=== PATIENT | female | born 1945 | race Caucasian/White ===

== ENCOUNTER → 2023-07-22 14:03 | Outpatient (REF) | payer MEDICARE, OTHER, SELFPAY | LOC: DHCBC HW 14:03 | PROVIDERS: ATTENDING PHYSICIAN Internal Medicine Cardiovascular Disease; FAMILY PHYSICIAN Internal Medicine | DX: R60.0 Localized edema (principal) | CPT/HCPCS: 93306 ==

== ENCOUNTER → 2023-08-03 15:20 | Outpatient (REF) | payer MEDICARE, OTHER, SELFPAY ==
[2023-08-03 16:54] LABS: ALT (SGPT) 56 U/L (0-35); AST (SGOT) 55 U/L (14-36); Albumin 3.7 g/dl (3.5-5.0); Alkaline Phosphatase 74 U/L (38-126); Blood Urea Nitrogen 21 mg/dl (7-17); Calcium 9.2 mg/dl (8.4-10.2); Carbon Dioxide 32 mmol/L (22-30); Chloride 95 mmol/L (98-107); Glucose 150 mg/dl (70-99); Sodium 133 mmol/L (135-145); Total Bilirubin 0.6 mg/dl (0.2-1.3); Total Protein 6.6 g/dl (6.3-8.2); eGFR 32.81
[2023-08-03 17:09] LABS: Free T3 3.24 pg/ml (2.77-5.27); Free T4 1.69 ng/dl (0.78-2.19)
[2023-08-03 17:22] LABS: TSH 8.68 uIU/ml (0.47-4.68)
== END ==
LOC: REG 15:20
PROVIDERS: ATTENDING PHYSICIAN Internal Medicine Endocrinology, Diabetes & Metabolism; FAMILY PHYSICIAN Internal Medicine; REFERRING PHYSICIAN Internal Medicine Cardiovascular Disease
DX: E05.90 Thyrotoxicosis, unspecified without thyrotoxic crisis or storm (principal); R60.0 Localized edema
CPT/HCPCS: 36415; 80053; 84439; 84443; 84481

== ENCOUNTER 2023-08-20 13:58 | Emergency (ER) | payer MEDICARE, OTHER, SELFPAY ==
[2023-08-20 14:06] VITALS: BP 129/54
--- NOTE | 2023-08-20 16:01 | ED.GENMED ---
History of Present Illness
General
Chief Complaint: Back Pain
Source: patient and family
Time Seen by Provider: 08/20/23 15:23
Travel History
Have you had any contact with someone who has COVID-19?: No
Do you have any symptoms of coronavirus? Fever > 100 degrees, chills, cough, shortness of breath, sore throat, loss of taste or smell, muscle aches, or headache?: No
History of Present Illness
History of Present Illness:
78-year-old female with past medical history of hypertension, hyperlipidemia, chronic kidney disease, CVA, chronic back pain presenting to the emergency department for evaluation of exacerbation of her back pain. Patient states she has been trying
Advil, creams and lidocaine patches without any relief. Patient notes pain is constant but significantly worse with any attempted movement. She denies any injuries to the affected area, falls or any other injuries. She denies any fevers, chills,
rigors, bowel changes or urinary symptoms, saddle anesthesias, focal weakness or numbness. Patient does take daily prednisone which she states is due to a thyroid disorder and has been on this for an extended period of time. She does not follow
with any pain management provider nor orthopedist and states she usually gets medication for pain from her primary care physician.
Past History
Past History
ED Past Medical History: Arrthythmia, HTN, Hypercholesterolemia, Renal failure, Psychiatric (Anxiety) and Other (Glaucoma)
ED Past Surgical History: Appendectomy and Cardiac (Open heart surgery)
Social History
Tobacco: Smoker
Alcohol: Occasional
Drug: None
Personal:
Living: with family
Review of Systems
Review of Systems
All Other Systems: ROS reviewed and negative except as documented in HPI and ROS
Phy Exam
Physical Exam
Physical Exam:
GENERAL: Alert , appears uncomfortable
EYE: clear conjunctiva b/l
NECK: Supple
ENT: o/p clr, mmm.
CARDIAC: Regular rate and rhythm .
LUNGS: Clear breath sounds bilaterally, no acute respiratory distress, no wheezes/rales/rhonchi
ABDOMEN: Soft, without focal tenderness, no r/g, no cvat
BACK: Limited secondary to pain range of motion, diffusely tender thoracolumbar region without any focal midline tenderness, no rashes
NEUROLOGICAL: Alert and oriented, no focal neuro deficits. sensation grossly intact and equal to light touch bilateral lower extremities
SKIN: Warm and dry, skin intact.
MUSCULOSKELETAL: No edema, well perfused. EHL intact bilaterally
PSYCH: Normal and appropriate interaction.
Scores
Heart Failure Risk
Heart Failure Risk Score: Not Applicable
Heart Score for Chest Pain Patients
STEMI patient?: Not applicable
Withdrawal Assessment of Alcohol
Withdrawal Assessment Completed?: Not applicable
Course
Orders/Labs/Results
Orders:
Orders
08/20/23 14:10
CR Lumbar Spine Comp Min 4 Vw* Urgent
Comment:
Reason For Exam: pain
08/20/23 16:00
Dexamethasone Sod Phosphate [Decadron] 10 mg IM NOW STA
Diazepam [Valium] 5 mg PO NOW STA
Vital Signs
Initial and Last Documented VS:
Initial Vital Signs
Temp Pulse Resp BP Pulse Ox
97.9 F 75 18 129/54 96
08/20/23 14:06 08/20/23 14:06 08/20/23 14:06 08/20/23 14:06 08/20/23 14:06
Last Documented Vital Signs
Temp Pulse Resp BP Pulse Ox
97.9 F 75 16 129/54 96
08/20/23 14:06 08/20/23 16:17 08/20/23 16:17 08/20/23 16:17 08/20/23 16:17
MDM/Problems Addressed
Differential Diagnosis Includes:
Compression fracture given chronic corticosteroid use, spinal stenosis, nerve impingement, disc herniation, muscle spasm
MDM/Problems Addressed:
78-year-old female presenting to the emergency department for evaluation for acute on chronic exacerbation of lower back pain. Patient had x-ray ordered from triage which I read as no acute fracture with degenerative changes however radiology did
contact us and notify us that patient has a suspected compression fracture at T12 and possible superior endplate fracture of the L1 vertebrae. Patient had already been discharged prior to this being done. I had treated her with a dose of Valium as
well as Decadron here troll. NSAIDs avoided given patient's history and use of Eliquis. After radiology noted these possible fractures I did contact the patient via her reported home phone number and left a voicemail for her to contact me back to
go over these results. I did provide the patient with information for pain management as well as orthopedics prior to her discharge.
*Radiology
Radiology exam reviewed: preliminary read by ED provider and radiology read reviewed
*Pulse Oximetry
Patient hypoxic: no
*Critical Care Note
Total Time (30-74mins, 75-104mins- exclusive of procedures): Not Applicable
ED Attending Note
-
Portions of this chart may have been created with voice recognition software.� Occasional wrong word or��sound alike� substitutions may have occurred due to the inherent limitations of voice recognition software.
Discharge Plan
Departure
Patient Disposition: Home (Routine Discharge)
Date of Disposition: 08/20/23
Time of Disposition: 16:01
Patient with high blood pressure during this ER visit?: No
Discharge Problem:
Chronic back pain
Instructions: Low Back Pain (DC)
Prescriptions:
New
diazepam [Valium] 5 mg tablet
5 mg PO HS PRN (Reason: muscle spasm) Qty: 8 0RF
No Action
latanoprost 0.005 % Drops
1 drp BOTH EYES HS
potassium chloride 10 mEq Tablet Extended Release
10 meq PO DAILY
losartan 25 mg Tablet
25 mg PO DAILY
Hold Instructions: Resume on 05/03/23. until seen by pcp and BMP performed and resulted, showing resolved ELENA
methimazole 5 mg Tablet
20 mg PO DAILY 30 Days Qty: 120 0RF
prednisone 20 mg Tablet
20 mg PO DAILY 30 Days Qty: 30 0RF
aspirin 81 MG tablet,delayed release (DR/EC)
81 mg PO DAILY Qty: 30 0RF
fluoxetine 20 MG capsule
20 mg PO DAILY Qty: 30 0RF
rosuvastatin 20 MG tablet
20 mg PO DAILY Qty: 30 0RF
multivitamin with folic acid [Tab-A-Muna] 1 TABLET tablet
1 tab PO DAILY Qty: 30 0RF
Eliquis 5 MG tablet
5 mg PO BID Qty: 60 0RF
Referrals:
Russ Mojica MD [Active] - (Pain Management)
Gurwinder Nloasco DO [Active] - (Orthopedist)
Interventions
Interventions:
*Risk Screen - Suicide Last Done: 08/20/23 14:06
*General Assessment Last Done: 08/20/23 14:06
*Neglect/Abuse Screening Last Done: 08/20/23 16:17
*Nursing Disposition Last Done: 08/20/23 16:17
ED-Musculoskeletal Assessment Last Done: 08/20/23 15:34
[2023-08-20] MEDS: DECADRON 10 MG IM (16:11)
[2023-08-20] MEDS: VALIUM 5 MG PO (16:13)
[2023-08-20 16:17] VITALS: BP 129/54
== END 2023-08-20 16:17 | disposition home or self-care (01) ==
LOC: EMR 13:58
PROVIDERS: EMERGENCY PHYSICIAN Emergency Medicine; FAMILY PHYSICIAN Internal Medicine
DX: G89.29 Other chronic pain (principal); M54.50 Low back pain, unspecified; F17.200 Nicotine dependence, unspecified, uncomplicated; E07.9 Disorder of thyroid, unspecified; I12.9 Hypertensive chronic kidney disease with stage 1 through stage 4 chronic kidney disease, or unspecified chronic kidney disease; N18.9 Chronic kidney disease, unspecified
CPT/HCPCS: 99284; 96372; 72110

== ENCOUNTER 2023-09-23 17:55 | Inpatient (IN) | payer MEDICARE, OTHER, SELFPAY ==
[2023-09-23 13:19] VITALS: BP 140/57
[2023-09-23 13:38] LABS: % Basophils 0.3 % (0-2); % Immature Granulocytes 1.8 % (0-0.5); % Lymphocytes 4.2 % (20.5-51.1); % Monocytes 7.3 % (1.7-9.3); % Neutrophils 85.4 % (42.2-75.2); Absolute Basophils 0.1 10^3/uL (0-0.2); Absolute Eosinophils 0.2 10^3/uL (0-0.7); Absolute Immature Granulocytes 0.4 10^3/uL (0-0.05); Absolute Lymphocytes 0.9 10^3/uL (1.2-3.4); Absolute Monocytes 1.5 10^3/uL (0.1-0.6); Absolute Neutrophils 17.6 10^3/uL (1.4-6.5); Hematocrit 38.6 % (37.0-47.0); Hemoglobin 12.1 g/dL (12.0-16.0); Mean Corp Hgb Conc. 31.3 g/dL (33.0-37.0); Mean Corpuscular Hgb 27.8 pg (27.0-31.0); Mean Corpuscular Volume 88.5 fL (81.0-99.0); Mean Platelet Volume 9.1 fL (7.4-10.4); Nucleated Red Blood Cells % 0 %; Platelet Count 268 10^3/uL (130-400); Red Blood Cell Count 4.36 10^6/uL (4.20-5.40); Red Cell Dist. Width 15.5 % (11.5-14.5); White Blood Cell Count 20.6 10^3/uL (4.8-10.8)
[2023-09-23 13:50] LABS: ALT (SGPT) 25 U/L (0-35); AST (SGOT) 43 U/L (14-36); Albumin 3.3 g/dl (3.5-5.0); Alkaline Phosphatase 119 U/L (38-126); Blood Urea Nitrogen 36 mg/dl (7-17); Carbon Dioxide 31 mmol/L (22-30); Chloride 97 mmol/L (98-107); Estimated Creatinine Clearance 27 ml/min; Glucose 130 mg/dl (70-99); Potassium 3.7 mmol/L (3.5-5.1); Sodium 132 mmol/L (135-145); Total Bilirubin 0.6 mg/dl (0.2-1.3); Total Protein 5.7 g/dl (6.3-8.2); eGFR 35.45
[2023-09-23 14:48] LABS: Urine Albumin 1+ (Neg - Trace); Urine Bilirubin 2+ (Negative); Urine Character Slightly Cloudy (Clear); Urine Color Yellow; Urine Glucose Negative (Negative); Urine Ketone Trace (Negative); Urine Leukocyte Trace (Negative); Urine Nitrite Positive (Negative); Urine Occult Blood 1+ (Negative); Urine Specific Gravity 1.015 (<1.030); Urine Urobilinogen 1+ (Neg - 1+)
--- NOTE | 2023-09-23 14:48 | ED.GENMED ---
History of Present Illness
General
Chief Complaint: Weakness
Source: patient
Exam Limitations: none
Time Seen by Provider: 09/23/23 13:47
Nursing documentation reviewed up to this point in time: agreed with
Travel History
Have you had any contact with someone who has COVID-19?: No
Do you have any symptoms of coronavirus? Fever > 100 degrees, chills, cough, shortness of breath, sore throat, loss of taste or smell, muscle aches, or headache?: No
History of Present Illness
History of Present Illness:
Patient is a 78-year-old female with past medical history of bradycardia, hypertension anxiety former smoker CABG x 2(2020) who presents from home complaining of weakness for the past several days. Patient denies any fever chills cough urinary
symptoms. Patient denies any chest pain shortness of breath.
Past History
Past History
ED Past Medical History: Arrthythmia, HTN, Hypercholesterolemia, Renal failure, Psychiatric (Anxiety) and Other (Glaucoma)
ED Past Surgical History: Appendectomy and Cardiac (Open heart surgery)
Social History
Tobacco: Smoker
Alcohol: Occasional
Drug: None
Personal:
Living: with family
Review of Systems
Review of Systems
Allergies reviewed?: Yes
All Other Systems: ROS reviewed and negative except as documented in HPI and ROS
Constitutional: Reports fatigue; Denies fever
EENT: Reports no symptoms
Respiratory: Reports no symptoms
Cardiac: Reports no symptoms
ABD/GI: Reports no symptoms
: Reports no symptoms
Musculoskeletal: Reports no symptoms
Skin: Reports no symptoms
Neurological: Reports no symptoms
Psychiatric: Reports no symptoms
Phy Exam
General Physical Exam
General Presentation: no apparent distress
General age: appears stated age
General Skin: warm and dry
General Habitus: normal
General Mental: alert
General Hydration: dry mucous membranes
Cardiovascular Exam
Cardiovascular Exam: regular rate/rhythm, no murmur and normal peripheral pulses
Pulmonary Exam
Pulmonary Exam: lungs clear and no respiratory distress
Neurological Exam
Neurological Exam: alert and oriented x3
Musculoskeletal Exam
Musculoskeletal Exam: full ROM
Skin Exam
Skin Exam: normal color and warm/dry
Psychiatric Exam
Psychiatric Exam: normal mood/affect
Course
Orders/Labs/Results
Orders:
Orders
09/23/23 13:28
Complete Blood Count/With Diff Urgent
Comprehensive Metabolic Panel Urgent
09/23/23 14:12
Straight cath- Treatment ONCE
09/23/23 14:41
UA Reflex to Culture [Urinalysis Reflex To Culture] Urgent
Date Specimen was Collected: 09/23/23
Time Specimen was Collected: 14:28
Urine Microscopic Reflex Cult Urgent
Urine Culture Urgent
THIERRY Source: U
Specimen Description:
Obtained by: Random
Date Specimen was Collected: 09/23/23
Time Specimen was Collected: 14:28
09/23/23 14:46
Chest [CR Chest - 2 Views ] Urgent
Comment:
Reason For Exam: weakness
09/23/23 14:49
Electrocardiogram (*1) Stat
Reason for Study: Other
Other Reason for Exam: chest pain
Cardiac Monitoring- Treatment ONCE
EKG- Treatment ONCE
09/23/23 15:05
COVID-19 Antigen Urgent
Source: Nasal Swab
Lactic Acid Q4H
Comment: CANCEL 2nd LACTIC ACID IF 1st LACTIC ACID IS LESS THAN 2
Blood Culture Q30M
THIERRY Source: Blood/Venous
Specimen Description:
Blood Culture Q30M
THIERRY Source: Blood/Venous
Specimen Description:
Influenza A+B Rapid Molecular Urgent
THIERRY Source: Nasal Swab
Specimen Description:
04/18/24 18:45
Lactic Acid Q4H
Comment: CANCEL 2nd LACTIC ACID IF 1st LACTIC ACID IS LESS THAN 2
Abnormal Lab Results
09/23/23 09/23/23
13:28 14:41
WBC 20.6 H 10^3/uL
(4.8-10.8)
MCHC 31.3 L g/dL
(33.0-37.0)
RDW 15.5 H %
(11.5-14.5)
Abs Immat Gran (auto) 0.4 H 10^3/uL
(0-0.05)
Absolute Neuts (auto) 17.6 H 10^3/uL
(1.4-6.5)
Absolute Lymphs (auto) 0.9 L 10^3/uL
(1.2-3.4)
Absolute Monos (auto) 1.5 H 10^3/uL
(0.1-0.6)
Immature Gran % 1.8 H %
(0-0.5)
Neutrophils % 85.4 H %
(42.2-75.2)
Lymphocytes % 4.2 L %
(20.5-51.1)
Sodium 132 L mmol/L
(135-145)
Chloride 97 L mmol/L
(98-107)
Carbon Dioxide 31 H mmol/L
(22-30)
BUN 36 H mg/dl
(7-17)
Creatinine 1.5 H mg/dL
(0.6-1.0)
Glucose 130 H mg/dl
(70-99)
AST 43 H U/L
(14-36)
Total Protein 5.7 L g/dl
(6.3-8.2)
Albumin 3.3 L g/dl
(3.5-5.0)
Urine Ketones Trace A
(Negative)
Ur Occult Blood Reflex 1+ A
(Negative)
Urine Nitrite (Reflex) Positive A
(Negative)
Urine Bilirubin 2+ A
(Negative)
Leukocyte Esterase Rfl Trace A
(Negative)
Urine RBC 3-6 A /HPF
(0-2)
Urine WBC (Reflex) 11-15 A /HPF
(0-5)
Urine Albumin (Reflex) 1+ A
(Neg - Trace)
09/23/23 13:28
09/23/23 13:28
Vital Signs
Initial and Last Documented VS:
Initial Vital Signs
Temp Pulse Resp BP Pulse Ox
97.4 F 85 20 140/57 93
09/23/23 13:19 09/23/23 13:19 09/23/23 13:19 09/23/23 13:19 09/23/23 13:19
Last Documented Vital Signs
Temp Pulse Resp BP Pulse Ox
97.4 F 83 22 140/57 93
09/23/23 13:19 09/23/23 16:00 09/23/23 16:00 09/23/23 13:19 09/23/23 13:19
MDM/Problems Addressed
Differential Diagnosis Includes:
Not limited to viral syndrome, COVID, influenza, anemia, UTI, electrolyte abnormality
MDM/Problems Addressed:
Patient is a 70-year-old female who complains of weakness for the past several days. Patient is documented has history of hypertension hyperlipidemia CABG chronic kidney disease recently treated for a pathetic hyperthyroidism in April 2023
presents to the ER with weakness. She denies any actual fevers. She is afebrile has an elevated white count 20.6(on Prednisone 10 mg daily for thyroid ) her creatinine is elevated at 1.5 which is baseline . She denies any UTI symptoms she has
11�15 white blood cells with nitrates. X-ray shows new extensive bilateral pulmonary metastatic disease with multiple solid pulmonary nodules in the lungs which appear new from April 2023. There is also a new superior endplate fracture of T12
with anterior vertebral body collapse likely a metastatic pathologic fracture.
Patient did not initially offer this but on reassessment and after speaking about findings on chest x-ray patient reports that her right arm seems to have been weak for the past 2 weeks. This is not new from today. On exam however there is no
actual focal deficit will still order CAT scan. Will treat for UTI and admit for new chest x-ray findings of metastatic disease
Chronic conditions affecting care:
CABG chronic kidney disease hypertension, hyperlipidemia
*Radiology
Radiology exam reviewed: radiology read reviewed (Chest x-ray shows new extensive bilateral pulmonary metastatic disease; new superior endplate fracture of T12 with anterior vertebral body collapse possibly metastatic)
*Pulse Oximetry
Patient hypoxic: no
*EKG
Interpreted by ED Provider?: Yes
Interpretation: normal
Heart Rate: 87
Rhythm: sinus
Ischemia: non-specific ST changes
*Critical Care Note
Total Time (30-74mins, 75-104mins- exclusive of procedures): Not Applicable
ED Attending Note
-
Portions of this chart may have been created with voice recognition software.� Occasional wrong word or��sound alike� substitutions may have occurred due to the inherent limitations of voice recognition software.
Discharge Plan
Departure
Patient Disposition: Admit
Date of Disposition: 09/23/23
Time of Disposition: 17:11
Admit to: Med/Surg
Admit to doctor: hospitalist
Presentation/result/management discussed w/ accepting MD/DO: Hospitalist
Patient with high blood pressure during this ER visit?: Yes
Condition: Fair
Covid-19: Not Applicable
Discharge Problem:
Weakness, Cancer, metastatic to lung, Urinary tract infection
Prescriptions:
No Action
latanoprost 0.005 % Drops
1 drp BOTH EYES HS
potassium chloride 10 mEq Tablet Extended Release
10 meq PO DAILY
losartan 25 mg Tablet
25 mg PO DAILY
Hold Instructions: Resume on 05/03/23. until seen by pcp and BMP performed and resulted, showing resolved ELENA
methimazole 5 mg Tablet
20 mg PO DAILY 30 Days Qty: 120 0RF
prednisone 20 mg Tablet
20 mg PO DAILY 30 Days Qty: 30 0RF
diazepam [Valium] 5 mg tablet
5 mg PO HS PRN (Reason: muscle spasm) Qty: 8 0RF
diazepam [Valium] 5 mg tablet
5 mg PO BID PRN (Reason: muscle spasm) Qty: 7 0RF
aspirin 81 MG tablet,delayed release (DR/EC)
81 mg PO DAILY Qty: 30 0RF
fluoxetine 20 MG capsule
20 mg PO DAILY Qty: 30 0RF
rosuvastatin 20 MG tablet
20 mg PO DAILY Qty: 30 0RF
multivitamin with folic acid [Tab-A-Muna] 1 TABLET tablet
1 tab PO DAILY Qty: 30 0RF
Eliquis 5 MG tablet
5 mg PO BID Qty: 60 0RF
Referrals:
Dave Tracey MD [Family Provider] -
Interventions
Interventions:
*Risk Screen - Suicide Last Done: 09/23/23 13:19
*General Assessment Last Done: 09/23/23 13:19
*Neglect/Abuse Screening Last Done: 09/23/23 13:19
ED- Cardiac Assessment Last Done: 09/23/23 14:45
ED- Neurological Assessment Last Done: 09/23/23 14:45
ED- Pulmonary Assessment Last Done: 09/23/23 14:45
Discharge Date and Time
Print Language: SETSWANA
[2023-09-23 15:01] LABS: Urine Granular Cast 0-2 /LPF (0); Urine Mucus Many
[2023-09-23 15:36] LABS: Lactic Acid 1.6 mmol/L (0.7-2.0)
[2023-09-23 16:02] LABS: COVID-19 Antigen Negative (Negative)
[2023-09-23 17:00] VITALS: BP 167/65
[2023-09-23] MEDS: ROCEPHIN 1000 MG IV (17:08)
[2023-09-23] MEDS: ZOFRAN 4 MG IV (17:08)
[2023-09-23] MEDS: NSS 500 IV (17:09)
--- NOTE | 2023-09-23 17:45 | HPS.HSE ---
Family Physician
-
Family Physician: Dave Tracey
Chief Complaint
-
weakness
History of Present Illness
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
hyperlipidemia, glucoma, former smoker, hyponatremia, presenting for weakness for the past 1 to 2 weeks. She feels generally weak but also specifically has been having occasional numbness and weakness in the right hand as well as pain in her upper
back rating down her right shoulder down to her hand. The symptoms started within the past week. She states she has some residual right-sided weakness from her prior CVA 3 years ago but currently symptoms are worse. She is sometimes having some
difficulty speaking. She denies any headache or blurry vision.
Patient felt nauseous and had an episode of vomiting today. She denies any fever or chills. She denies any diarrhea or constipation. She denies any abdominal pain. She has not been eating well recently and has lost weight. Denies any blood in
the stool or black stool.
Patient has a history of lower extreme edema and was previously on Lasix which was stopped by her primary care physician. Swelling increased so she began taking Lasix again. She has minimal urinary output when she does not take Lasix but has been
having more output since taking Lasix. She denies any lower extremity edema currently.
She denies any cough, shortness of breath or chest pain.
Denies any family history of malignancy.
Medical History
Past Medical History
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
glucoma, former smoker, hyponatremia)
Past Surgical History: Reports None
Social History
Tobacco: Former Smoker
Alcohol: Former
Drug: None
Family History
Family History: Not pertinent
Allergies / Home Medications
Allergies reflects when Allergies were last updated in [facility].
Home Medications with original date entered in [facility]
Allergy/Medication List:
Allergies
Allergy/AdvReac Type Severity Reaction Status Date / Time
No Known Allergies Allergy Verified 09/23/23 13:19
Home Medications
apixaban 5 mg tablet (Eliquis) 5 mg PO BID #60 tabs 03/05/21
fluoxetine 20 mg capsule 20 mg PO DAILY #30 caps 03/05/21
multivitamin with folic acid 400 mcg tablet (Tab-A-Muna) 1 tab PO DAILY #30 tabs 03/05/21
rosuvastatin 20 mg tablet 20 mg PO DAILY #30 tabs 03/05/21
latanoprost 0.005 % eye drops 1 drp BOTH EYES HS 04/22/23
potassium chloride 10 mEq tablet,extended release 10 meq PO BID 04/22/23
prednisone 5 mg tablet 10 mg PO DAILY 09/23/23
Review of Systems
-
History Source: Patient
A 12 point ROS was completed and negative except as noted: Yes
Constitutional: Reports No Symptoms
EENT: Reports No Symptoms
Respiratory: Reports No Symptoms
Cardiac: Reports No Symptoms
Abdomen/GI: Reports No Symptoms
: Reports See HPI
Musculoskeletal: Reports No Symptoms
Skin: Reports No Symptoms
Neurological: Reports No Symptoms
Endocrine: Reports No Symptoms
Hematologic/Lymphatic: Reports No Symptoms
Psych: Reports No Symptoms
Physical Exam
Vital Signs
Vital Signs
Temp Pulse Resp BP Pulse Ox
97.4 F 83 22 140/57 93
09/23/23 13:19 09/23/23 16:00 09/23/23 16:00 09/23/23 13:19 09/23/23 13:19
Physical Exam
General: Well Developed, Well Nourished and No Apparent Distress
HEENT: NormoCephalic, Moist mucous membranes and Atraumatic
Respiratory: Clear
Cardiac: S1/S2 and Regular Rhythm; No Murmur or Rub
GI: Soft, Non Tender, Non Distended and Normal Bowel Sounds; No Organomegaly
Rectal: Deferred by Provider
Musculoskeletal: No Clubbing, No Cyanosis and No Edema
Skin: No Rash
Neuro: Nonfocal/grossly intact
Laboratory Results
-
09/23/23 13:28
09/23/23 13:28
Laboratory Results
Lactic Acid 1.6 mmol/L (0.7-2.0) 09/23/23 15:05
Total Bilirubin 0.6 mg/dl (0.2-1.3) 09/23/23 13:28
AST 43 U/L (14-36) H 09/23/23 13:28
ALT 25 U/L (0-35) 09/23/23 13:28
Alkaline Phosphatase 119 U/L (38-126) 09/23/23 13:28
Data Reviewed
-
Lab Data: Labs Reviewed by me
Old Records: Reviewed
Impression/Plan
-
IMPRESSION:
PLAN:
# Generalized weakness multifactorial secondary to UTI, underlying malignancy
-See individually below
# Urinary tract infection
-IV fluids given, continue gentle fluids
-Check urine, blood cultures
-Ceftriaxone
# Leukocytosis secondary to UTI/chronic steroids
-Continue to monitor with treatment
# New extensive bilateral pulmonary metastatic disease/solid pulmonary nodules
# New superior endplate fracture of T12 with anterior vertebral body collapse possibly metastatic pathologic fracture
-No pulmonary symptoms
-Check CT chest/abdomen pelvis with IV contrast nonurgently to evaluate for primary source of malignancy
-IV fluids to optimize kidney function prior to CT scan given CKD
# Right upper extremity numbness and tingling/weakness possibly secondary to cervical radiculopathy versus brain metastases versus CVA
-CT head pending
-Check MRI brain with and without contrast
-Hold Eliquis until brain imaging complete
CAD status post CABG x 2
-Continue aspirin
Paroxysmal atrial fibrillation
-Hold Eliquis until brain imaging complete
Bradycardia
Essential hypertension
-Continue losartan
Hyperthyroidism
-Continue methimazole
-Continue prednisone
Chronic kidney disease 3B
Chronic lower extremity edema
-Hold Lasix
Anxiety
-Continue diazepam
-Continue fluoxetine
Hyperlipidemia
-Continue statin
Glaucoma
-Continue latanoprost
Former smoker
Chronic hyponatremia likely due to poor p.o. intake/SIADH
-Stable
Full code
DVT prophylaxis�Eliquis
Regular diet
[2023-09-23 17:55] VITALS: BMI 30.7
[2023-09-23 18:00] VITALS: BP 139/60
[2023-09-23] MEDS: KCL PO ×2 (19:31→21:27)
[2023-09-23] MEDS: NSS 1000 IV (19:32)
[2023-09-23] MEDS: XALATAN OPHTHALMIC SOLUTION 1 DROP BOTH EYES (22:01)
[2023-09-24] VITALS (8 sets, daily range): BP systolic 129–174; BP diastolic 51–73; PULSE 97; O2SAT 95–97; BMI 192.5
[2023-09-24] MEDS: OMNIPAQUE 50 ML PO (06:07)
[2023-09-24 06:34] LABS: % Basophils 0.2 % (0-2); % Eosinophils 1.6 % (0-6); % Immature Granulocytes 1.3 % (0-0.5); % Lymphocytes 6.6 % (20.5-51.1); % Neutrophils 82.3 % (42.2-75.2); Absolute Basophils 0.1 10^3/uL (0-0.2); Absolute Eosinophils 0.3 10^3/uL (0-0.7); Absolute Immature Granulocytes 0.3 10^3/uL (0-0.05); Absolute Lymphocytes 1.3 10^3/uL (1.2-3.4); Absolute Monocytes 1.6 10^3/uL (0.1-0.6); Absolute Neutrophils 16.6 10^3/uL (1.4-6.5); Hematocrit 32.9 % (37.0-47.0); Hemoglobin 10.2 g/dL (12.0-16.0); Mean Corpuscular Hgb 28.1 pg (27.0-31.0); Mean Corpuscular Volume 90.6 fL (81.0-99.0); Mean Platelet Volume 9.5 fL (7.4-10.4); Nucleated Red Blood Cells % 0 %; Platelet Count 237 10^3/uL (130-400); Red Blood Cell Count 3.63 10^6/uL (4.20-5.40); Red Cell Dist. Width 15.7 % (11.5-14.5); White Blood Cell Count 20.2 10^3/uL (4.8-10.8)
[2023-09-24 07:11] LABS: ALT (SGPT) 21 U/L (0-35); AST (SGOT) 42 U/L (14-36); Albumin 2.5 g/dl (3.5-5.0); Alkaline Phosphatase 81 U/L (38-126); Blood Urea Nitrogen 35 mg/dl (7-17); Calcium 8.1 mg/dl (8.4-10.2); Carbon Dioxide 31 mmol/L (22-30); Chloride 103 mmol/L (98-107); Estimated Creatinine Clearance 31 ml/min; Glucose 76 mg/dl (70-99); Sodium 134 mmol/L (135-145); Total Bilirubin 0.4 mg/dl (0.2-1.3); Total Protein 4.7 g/dl (6.3-8.2); eGFR 42.09
--- NOTE | 2023-09-24 07:27 | PTCARENOTE ---
patient found to be 89% on RA and sob. applied 2L NC. Patient now 93% on 2L. Patient states she feels better.
[2023-09-24] MEDS: CRESTOR 20 MG PO (08:19)
[2023-09-24] MEDS: DELTASONE 10 MG PO (08:20)
[2023-09-24] MEDS: PROZAC 20 MG PO (08:20)
[2023-09-24] MEDS: THERAGRAN 1 TABLET PO (08:20)
[2023-09-24] MEDS: KCL 10 MEQ PO ×2 (08:25→20:56)
--- NOTE | 2023-09-24 08:34 | CON.PUL ---
Consultation
Consultation Request
Date/Time Consultation Requested: 09/24/2023622
Date/Time Consultation Performed: 09/24/2023819
Requesting Provider: Dr. Whitney
Performing Provider: Dr. Agudelo
Reason for Consultation: Pulmonary Nodules
Medical History
-
Chief Complaint: Weakness
History of Present Illness:
78-year-old female with a past medical history of stroke with residual right-sided weakness, paroxysmal A-fib on Eliquis, CAD s/p CABG X2, restless leg syndrome, anxiety, and history of bradycardia who presents from home with generalized weakness x
3 days. In the ER patient saturating 93% on room air and was afebrile to 97.4 �F, pulse rate 85 and BP 140/57; RR: 20. Labs showed leukocytosis to 20.6, hyponatremia 132, low serum chloride of 97, elevated serum bicarbonate of 31, elevated
creatinine 1.5 which is around her baseline, urinalysis positive for UTI, COVID antigen is negative. Urine culture was collected and blood cultures also collected. Flu swab A/B negative. CXR showed multiple large solid pulmonary nodules
bilaterally concerning for metastatic disease. CT head showed a 1.6 cm acute ischemic infarct in the left caudate nucleus and anterior limb of the left internal capsule with cytotoxic edema. CT chest, abdomen, pelvis also confirmed innumerable
bilateral pulmonary nodules with a left inferior mediastinal mass measuring 4.3 x 3.2 x 3.8 cm with mass effect against the left atrium and pulmonary veins. Also evidence of hepatic and splenic metastasis with retroperitoneal metastasis and omental
metastatic involvement with small volume ascites. Rectum also shows distal wall thickening which appears eccentric. She was given antibiotics in the ER with ceftriaxone and given IV fluids with NS 0.9% x 500cc, and admitted to the hospitalist
service. Given multiple pulmonary nodules with concern for metastatic disease, pulmonary now consulted for additional management/recommendations.
When I saw the pt she was in bed in NAD. She was on 3L/min breathing comfortably. She denies SOB, CP, night sweats, she endorses weight loss but that she has been not eating as much lately. I mentioned and reviewed in detail the CT
chest/abd/pelvis imaging as well as her CT head, and she was upset but she was already aware of this. She currently denies chest pain, LYLE, SOB, abd pain, abd distention, N/V/f/c.
PMHx: CAD s/p CABG X2, paroxysmal A-fib on Eliquis, history of CVA with residual right-sided weakness, history of bradycardia, hypertension, RLS, cataracts, anxiety, glaucoma
PSHx: Appendectomy, right ankle ORIF, bilateral cataract surgery, CABG X2
Past Medical History
Past Medical History: Other (Above as per HPI)
Past Surgical History: Other (Above as per HPI)
Social History
Tobacco: Former Smoker (Prior 1-2 PPD, quit >5-10 years ago)
Alcohol: Former
Drug: None
Family History
Family History: Other (Mother: Severe bronchiectasis)
Allergies / Home Medications
Allergies
Allergy/AdvReac Type Severity Reaction Status Date / Time
No Known Allergies Allergy Verified 09/23/23 13:19
Home Medications
�Medication �Instructions �Recorded �Confirmed �Last Taken �Type
fluoxetine 20 mg capsule 20 mg PO DAILY #30 caps 03/05/21 09/23/23 09/22/23 Rx
multivitamin with folic acid 400 1 tab PO DAILY #30 tabs 03/05/21 09/23/23 09/22/23 Rx
mcg tablet (Tab-A-Muna)
rosuvastatin 20 mg tablet 20 mg PO DAILY #30 tabs 03/05/21 09/23/23 09/22/23 Rx
latanoprost 0.005 % eye drops 1 drp BOTH EYES HS Eye Condition 04/22/23 09/23/23 09/22/23 History
potassium chloride 10 mEq 10 meq PO BID Electrolyte Repletion 04/22/23 09/23/23 09/22/23 History
tablet,extended release
prednisone 5 mg tablet 10 mg PO DAILY inflammation 09/23/23 09/23/23 09/22/23 History
apixaban 5 mg tablet (Eliquis) 5 mg PO BID Blood Clot 09/24/23 09/23/23 09/22/23 History
Prevention/Tx
Review of Systems
-
History Source: Patient
All other systems: Negative unless noted
Vitals / Labs / Diagnostic Testing
Vital Signs
Temp Pulse Resp BP Pulse Ox
99.3 F 89 19 174/61 96
09/24/23 07:32 09/24/23 08:00 09/24/23 08:00 09/24/23 08:00 09/24/23 07:46
Lab Data
09/24/23 06:08
09/24/23 06:08
Microbiology
09/23/23 14:41 Urine Urine Culture - Preliminary
Escherichia coli
09/23/23 15:05 Nasal Swab Influenza Types A & B (JAVIER) - Final
Negative for Influenza A & B, NAAT
Negative results must be combined with clinical observations
and patient history.
Nucleic Acid Amplification test (NAAT)performed on the
[employer] platform.
Diagnostic Testing:
Physical Exam
-
HEENT: Normocephalic and Anicteric
Cardiovascular: S1/S2 and Peripheral Edema (trace ANNAMARIA b/l)
Respiratory: Clear, Wheeze (negative), Rales (negative), Rhonchi (negative) and Non-Labored Respirations
GI: Soft, Non Distended, Non Tender and Normal Bowel Sounds
Neurology: Awake and Alert
Skin: Warm and Dry
General: Comfortable and Poor Appetite
Assessment
-
Assessment: 78-year-old female with a past medical history of stroke with residual right-sided weakness, paroxysmal A-fib on Eliquis, CAD s/p CABG X2, restless leg syndrome, anxiety, and history of bradycardia who presents from home with generalized
weakness x 3 days. In the ER patient saturating 93% on room air and was afebrile to 97.4 �F, pulse rate 85 and BP 140/57; RR: 20. Labs showed leukocytosis to 20.6, hyponatremia 132, low serum chloride of 97, elevated serum bicarbonate of 31,
elevated creatinine 1.5 which is around her baseline, urinalysis positive for UTI, COVID antigen is negative. Urine culture was collected and blood cultures also collected. Flu swab A/B negative. CXR showed multiple large solid pulmonary nodules
bilaterally concerning for metastatic disease. CT head showed a 1.6 cm acute ischemic infarct in the left caudate nucleus and anterior limb of the left internal capsule with cytotoxic edema. CT chest, abdomen, pelvis also confirmed innumerable
bilateral pulmonary nodules with a left inferior mediastinal mass measuring 4.3 x 3.2 x 3.8 cm with mass effect against the left atrium and pulmonary veins. Also evidence of hepatic and splenic metastasis with retroperitoneal metastasis and omental
metastatic involvement with small volume ascites. Rectum also shows distal wall thickening which appears eccentric. She was given antibiotics in the ER with ceftriaxone and given IV fluids with NS 0.9% x 500cc, and admitted to the hospitalist
service. Given multiple pulmonary nodules with concern for metastatic disease, pulmonary now consulted for additional management/recommendations.
Chronic conditions [employer]: CAD s/p CABG X2, paroxysmal A-fib on Eliquis, history of CVA with residual right-sided weakness, history of bradycardia, hypertension, RLS, cataracts, anxiety, glaucoma
Impression:
#Mediastinal mass in left inferior mediastinum with multiple pulmonary nodules and hilar lymphadenopathy (R>L) concerning for metastatic disease
#Retroperitoneal/omental metastasis with malignant ascites
#Left basal ganglia acute ischemic CVA (seen on CT head from 09/23/2023)
#T12 acute superior endplate fracture, possibly a pathological fracture
#Positive urinalysis suggestive of UTI
#Hypochloremic, hyponatremia
#ELENA on CKD (baseline Cr approximately 1.2)
Plan:
- Recommend liver biopsy vs right-sided diagnostic thoracentesis to assess for malignancy as this will yield a higher stage; she may end up needing robotic assisted bronchoscopy with EBUS vs mediastinoscopy as mediastinal mass is suggestive that
this is primary site; colon is also possible primary site as the rectum shows eccentric distal wall thickening on CT c/a/p
- Recommend oncology consult - recs appreciated
- neuro consulted; continue neurochecks with NIHSS per protocol
- MRI Brain with and without contrast recommended
- Maintain SpO2 >90-94% with supplemental O2 as needed
- Incentive spirometer encouraged
- Replete electrolytes with K>4, Mg>2
- Maintain euglycemia with goal BG >100 and <180
- prn nebulized bronchodilators
- DVT ppx
Patient is amenable to working up her cancer. It is unclear if she wants to even treat her cancer with chemo/immunotherapy, but she at least wants to obtain a diagnosis first and go from there. I asked if she wanted me to discuss her diagnosis
with her family/children, and she said absolutely not, that they would only 'freak out.' I answered all the patient's questions.
Patient seen and evaluated on 09/24/2023.
Pulmonary service will continue to follow along.
Total time spent today was 75 minutes for this encounter. Time includes reviewing laboratory test/imaging results, reviewing pertinent medical records, obtaining and reviewing medical history, performing an appropriate exam, ordering medications,
tests and procedures. Time also includes documentation of this encounter, coordinating patient care and communicating with other healthcare professionals. Total time does not include separately billed tests performed on this date of service.
Data:
CT Chest/Abdomen/Pelvis with IV Contrast 09-24-2023:
1. Innumerable bilateral pulmonary nodules consistent with metastases. Small right pleural effusion.
2. Hepatic and splenic metastases. Retroperitoneal metastases. Omental metastatic involvement with small volume ascites. Osseous metastases with multiple probably pathologic compression fracture deformities as above. Two likely pathologic right
rib fractures as above.
3. Site of primary malignancy is not definitively identified. There is abnormal mass in the inferior mediastinum which measures up to 4.3 cm in diameter as above. This could be related to metastasis or potentially primary malignancy, could be
further evaluated with endoscopy. There is also abnormal eccentric wall thickening of the rectum as above which could be inflammatory or neoplastic.
CT Head 09-23-2023:
1. 1.6 cm ACUTE ISCHEMIC INFARCT in the left caudate nucleus and anterior limb of the left internal capsule containing cytotoxic edema.
2. Small chronic transcortical infarct in the left insular cortex.
3. Small chronic lacunar infarcts in both thalami.
4. Severe white matter leukoaraiosis in the frontal and parietal lobes.
5. Moderate volume loss in the frontal and parietal lobes.
CXR 09-23-2023:
1. NEW EXTENSIVE BILATERAL PULMONARY METASTATIC DISEASE with multiple solid pulmonary nodules in the lungs which appear new from 04/22/2023.
2. Mild scarring and subsegmental atelectasis in both lower lungs.
3. Previous CABG surgery.
4. New superior endplate fracture of T12 with anterior vertebral body collapse (possibly a metastatic pathologic fracture).
--- NOTE | 2023-09-24 08:43 | W.PN.HOSP.TC ---
Today's Communication/Plan
-
.
Assessment / Plan
Assessment / Plan
Physical Exam
General: No Apparent Distress
HEENT: Normocephalic, Moist mucous membranes and Atraumatic
Respiratory: rhonchi bilaterally
Cardiac: S1/S2
GI: Soft, Non Tender, Non Distended and Normal Bowel Sounds;
Rectal: No rectal bleeding
Musculoskeletal: No Clubbing, No Cyanosis and No Edema
Skin: No Rash
Neuro: right upper and low extremity weakness noted, no tremors, no slurred speech
Psych : no agitation
#Acute ischemic stroke of the left side of the brain causing right arm weakness, right leg weakness.
CT is reviewed
C/W MRI study including cervical spine, she is claustrophobic, She wants some sedation, will do IV Lorazepam.
Hold apixaban
-Aspirin 81 mg daily
-Neurologic checks and NIH stroke scale
-Goal normotension
-Speech/ PT/OT
-Appreciate neurology input
# Stage IV metastatic cancer
unknown primary
Does not do her regular mammogram or colonoscopy
I d/w IR, liver biopsy, seems a feasible option
d/w with pt at length, also joined by oncologist, she agreed to pursue diagnostic work up but was very strict to not inform her family.
# Urinary tract infection
-IV fluids given, continue gentle fluids
-Check urine, blood cultures
-Ceftriaxone
# Leukocytosis secondary to UTI/chronic steroids
-Continue to monitor with treatment
-Afebrile
#CAD status post CABG x 2
-Continue aspirin
#Paroxysmal atrial fibrillation
-Hold Eliquis with new stroke
#Bradycardia
#Essential hypertension
Losartan was not on her med list. Will start her on low-dose nifedipine
#Hyperthyroidism
-Continue methimazole
-Continue prednisone
#Chronic kidney disease 3B
Monitor creatinine
No hematuria
No flank pain
#Chronic lower extremity edema
-Hold Lasix
#Anxiety
-Continue diazepam
-Continue fluoxetine
#Hyperlipidemia
-Continue statin
#Glaucoma
-Continue latanoprost
#Former smoker
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
-Monitor sodium level, she is AAOX3
�Total time spent to see patient, examine the patient on the floor, review data and lab results, discuss treatment plan with patient, consultants, nursing staff around 55 minutes
Anticipated Discharge: > 48 hours
Subjective/Interval History
-
Date of Service: September 24, 2023
No chest pain n
No fevers
Objective Data
-
Labs:
Laboratory Results
09/24/23
06:08
WBC 20.2 H
Hgb 10.2 L
Hct 32.9 L
Plt Count 237
Sodium 134 L
Potassium 4.0
Chloride 103
Carbon Dioxide 31 H
BUN 35 H
Creatinine 1.3 H
Glucose 76
Calcium 8.1 L
Total Bilirubin 0.4
AST 42 H
ALT 21
Alkaline Phosphatase 81
Vital Signs:
Vital Signs
Temp Pulse Resp BP Pulse Ox
99.3 F 95 22 129/67 96
09/24/23 07:32 09/24/23 07:20 09/24/23 07:20 09/24/23 07:20 09/24/23 07:46
--- NOTE | 2023-09-24 09:12 | CON.NEURO4 ---
Addendum entered and electronically signed by Kike Toth MD 09/24/23 12:29:
I saw and evaluated the patient I reviewed the note by Adrienne Jo agree the findings the following comments:
78-year-old woman with a past no history of previous ischemic stroke with little to no residual deficits, atrial fibrillation on apixaban, coronary artery disease, CKD presented to hospital with onset of right arm weakness. Reports that seems to
have an onset within the past week, denies any head or neck pain and no weakness of the face speech difficulty or right leg weakness.
Findings here's have ranged concern for likely metastatic disease with innumerable pulmonary nodules with sepsis and possibly metastatic pathologic fracture of the T12 vertebrae.
Patient has been compliant with Eliquis.
Neurologic examination shows a tired appearing patient with some fatigue but is conversational awake and appropriate with no evidence of aphasia and good comprehension.
Right arm weakness and drift is apparent 4/[address] head noncontrast shows left hypodensity in the insula and vyas radiata region most likely representing acute to subacute ischemic stroke.
Assessment: Acute ischemic stroke of the left side of the brain causing right arm weakness. Etiology of stroke may be multifactorial partly due to hypercoagulability of malignancy, atrial fibrillation, hypertension and coronary artery disease is
all risk factors for stroke.
New finding of metastatic disease on CT of the chest abdomen pelvis without obvious source.
Recommendations
-Would check MRI of the brain with and without contrast and MRI cervical spine with and without contrast to evaluate stroke and also evaluate for possibility of any metastasis to the brain or cervical spine
-Hold apixaban for the time being
-Placed on aspirin 81 mg daily
-Neurologic checks and NIH stroke scale
-Goal normotension
-Speech physical therapy evaluations
-Workup for source of metastatic cancer
Will follow
Original Note:
Documented by User: Adrienne Orozco NP 09/24/23 11:57
Consultation - Neurology 4
-
CONSULTING PHYSICIAN: Aristeo Toth MD
REFERRING PHYSICIAN: Hospitalists/Dr. Whitney
DICTATED BY: TRISTA Raygoza
DATE/TIME OF REQUEST: 09/24/23
DATE/TIME OF CONSULTATION: 09/24/23
Reason for Consultation: RUE weakness/numbness
History of Present Illness:
This is a 78-year-old right-handed female who has presented to the hospital on 09/23/23 with report of weakness. Patient is known to our inpatient Neurology service from a previous hospital encounter in February 2021 at which time she had a CABG
and post procedure developed acute onset expressive aphasia, dysarthria, and RUE drift. MRI brain was obtained and demonstrated an acute nonhemorrhagic infarct in the left temporal and parietal lobes. She was newly found to have paroxysmal Afib on
cardiac monitoring at that time and was started on Eliquis 5mg BID. She reports that her speech returned to normal in two days following that event, and her RUE almost returned to normal but is still slightly weak at baseline.
Today (09/24/23): Patient has poor recollection of recent events, but reports that about one week ago she started feeling generalized weakness and moderate weakness and decreased sensation in her RUE from her hand up to her shoulder. Her symptoms
were persistent and yesterday (09/23/23) she decided to come to the ER for evaluation. CXR was obtained on arrival to the ER and demonstrates new extensive bilateral pulmonary metastatic disease new from 04/2023 and a new superior endplate fracture
of T12 concerning for a possible metastatic pathologic fracture. CT head was also obtained and demonstrates and acute left caudate nucleus and anterior limb of the left internal capsule ischemic infarct with cytotoxic edema. She is taking Eliquis
for Afib and has not missed any doses. She was not a candidate for TNK/IAT due to being outside of the time window and Eliquis usage. WBC count was 20.6 and urinalysis is supportive of UTI, she was started on IV Rocephin. Today (09/24/23), she
reports ongoing RUE weakness/sensation changes, mild difficulty getting her words out, dyspnea, and dysuria. She denies any headache, dizziness, vision changes, swallowing difficulty, nausea, chest pain, and palpitations. She does report poor
appetite and one episode of vomiting yesterday. Her RUE weakness that she currently has is more severe than the weakness she had with her stroke in 2020. She denies any recent fever or illness.
Past Medical History: Left temporal and parietal ischemic stroke 2020, Afib (Eliquis), CAD, HTN, HLD, hyperthyroidism, CKD, glaucoma, hyponatremia
Surgical History: CABG x2, appendectomy
Family History: Reviewed and noncontributory.
Social History: Former smoker and alcohol use. Denies illicit drug use.
Allergies: No known allergies.
Home Medications: See below.
Review of Symptoms:
Patient denies any fever, headache, chest pain, shortness of breath, or GI symptoms.
�Per the HPI.�All systems are reviewed negative except above.
Physical Exam:
The patient is afebrile, abdomen is nondistended, breathing is labored, skin is warm and dry, trace bilateral lower extremity edema.
NIH Stroke Scale:
I performed the NIH stroke scale on the patient on 09/24/23 at 0915. The patient scored 4 points on the NIH stroke scale assessment, which were assigned as follows: See below.
Neurologic Examination:
The patient is awake, alert and oriented x 3. She is able to follow commands and answer questions appropriately. There is no aphasia. Speech is mildly dysarthric. On cranial nerve assessment, pupils are 3 mm bilateral, round and reactive to light
and accommodation. Visual villafuerte are full. Extraocular movements are intact. Facial sensations are intact and bilaterally symmetrical, there is no facial asymmetry. Hearing is intact bilaterally to normal conversation volume. Tongue palate and uvula
are midline. Motor strengths are 4-/5, 5/5 left upper and 5/5 bilateral lower extremities on medical research [place] scale. There is drift in the RUE. No involuntary movement noted. Deep tendon reflexes are 2+ bilateral upper and 1+ bilateral lower
extremities and Babinski is absent bilaterally. Sensations of temperature and vibration are moderately reduced in the RUE and mildly reduced in distal RLE. There was no extinction noted on double simultaneous stimulation. Coordination is intact by
finger to nose in the LUE only.
Lab Results: See below.
Neuro Imaging:
1. CT head 09/23/23: 1.6 cm ACUTE ISCHEMIC INFARCT in the left caudate nucleus and anterior limb of the left internal capsule containing cytotoxic edema. Small chronic transcortical infarct in the left insular cortex. Small chronic lacunar infarcts
in both thalami. Severe white matter leukoaraiosis in the frontal and parietal lobes. Moderate volume loss in the frontal and parietal lobes.
Differentials for the patient's presentation include:
1. Acute left caudate nucleus/left internal capsule ischemic infarct, some concern for metastases vs stroke.
2. Chronic left insular cortex and b/l thalamic infarcts.
3. Multiple bilateral pulmonary nodules, hepatic and splenic metastases, osseous metastases with multiple pathologic compression fracture, inferior mediastinum mass, eccentric thickening of the rectum. Unclear primary source of malignancy.
4. T12 fracture, concern for underlying metastases.
Patient has the following risk factors for their symptoms: New diagnosis cancer, hx stroke, Afib, UTI
IV Tenecteplase/IAT candidacy: Not a candidate due to outside of time window, symptom onset 1 weeks ago.
Recommendations:
-Hold Eliquis for 48 hours. Resume Eliquis 5mg BID tomorrow (09/25/23) with evening dose.
-Goal normotension as it is greater than 24 hours from symptom onset.
-MRI brain and cervical spine w/ and w/o contrast ordered/pending.
-Metastatic and infectious workup per primary team.
-NIHSS and neurological checks per unite guidelines.
-Provide patient with a stroke education packet.
-PT/OT/ST evaluations.
-LDL goal <70. LDL is pending. Continue home rosuvastatin 20mg daily for now.
-Goal normoglycemia, hbA1c is pending.
-DVT prophylaxis.
Discussed patient care with: Dr. Toth, the patient
Vital Signs and Labs
-
Vital Signs and Labs:
Vital Signs
Temp Pulse Resp BP Pulse Ox
99.3 F 89 19 174/61 96
09/24/23 07:32 09/24/23 08:00 09/24/23 08:00 09/24/23 08:00 09/24/23 07:46
Lab Results
09/24/23 06:08
09/24/23 06:08
Sodium 134 mmol/L (135-145) L 09/24/23 06:08
Potassium 4.0 mmol/L (3.5-5.1) 09/24/23 06:08
BUN 35 mg/dl (7-17) H 09/24/23 06:08
Glucose 76 mg/dl (70-99) 09/24/23 06:08
Calcium 8.1 mg/dl (8.4-10.2) L 09/24/23 06:08
Medications
-
Active Medications
Generic Name Dose Route Start Last Admin
Trade Name Angelica PRN Reason Stop Dose Admin
Ceftriaxone Sodium 1,000 mg 09/24/23 18:00
Ceftriaxone 1000 Mg / 10 Ml Vial IV
Q24H MARY
Fluoxetine HCl 20 mg 09/24/23 08:00 09/24/23 08:20
Fluoxetine 20 Mg Capsule PO 10/22/23 07:59 20 mg
DAILY MARY Administration
Sodium Chloride 1,000 mls @ 70 mls/hr 09/23/23 18:43 09/23/23 19:32
Nss IV 1,000 mls
[id number] MARY Administration
Latanoprost 0 drop 09/23/23 22:00 09/23/23 22:01
Latanoprost 0.005% (Ophthalmic Solution) 2.5 Ml Bottle BOTH EYES 10/21/23 21:59 1 drop
HS MARY Administration
Multivitamins Therapeutic 1 tablet 09/24/23 08:00 09/24/23 08:20
Multivitamin Tablet PO 10/22/23 07:59 1 tablet
DAILY MARY Administration
Ondansetron HCl 4 mg 09/23/23 18:43
Ondansetron 4 Mg/2 Ml Vial IV 10/21/23 18:42
Q6HPRN PRN
nausea and vomiting
Potassium Chloride 10 meq 09/23/23 20:00 09/24/23 08:25
Potassium Chloride 10 Meq Extended Release Tablet PO 10/21/23 19:59 10 meq
BID MARY Administration
Prednisone 10 mg 09/24/23 08:00 09/24/23 08:20
Prednisone 10 Mg Tablet PO 10/22/23 07:59 10 mg
DAILY MARY Administration
Rosuvastatin Calcium 20 mg 09/24/23 08:00 09/24/23 08:19
Rosuvastatin (Crestor) 20 Mg Tablet PO 10/22/23 07:59 20 mg
DAILY MARY Administration
Sodium Chloride 0 flush 09/23/23 19:00
Sodium Chloride 0.9% (Flush) Syringe IV 10/21/23 18:59
PER PROTOCOL MARY
Sterile Water 10 ml 09/24/23 18:00
Sterile Water For Injection 10 Ml Vial IV 10/22/23 17:59
Q24H MARY
Home Medications
�Medication �Instructions �Recorded
apixaban 5 mg tablet (Eliquis) 5 mg PO BID #60 tabs 03/05/21
fluoxetine 20 mg capsule 20 mg PO DAILY #30 caps 03/05/21
multivitamin with folic acid 400 1 tab PO DAILY #30 tabs 03/05/21
mcg tablet (Tab-A-Muna)
rosuvastatin 20 mg tablet 20 mg PO DAILY #30 tabs 03/05/21
latanoprost 0.005 % eye drops 1 drp BOTH EYES HS 04/22/23
potassium chloride 10 mEq 10 meq PO BID 04/22/23
tablet,extended release
prednisone 5 mg tablet 10 mg PO DAILY 09/23/23
NIH Stroke Score
Subsequent NIH Scale
Date of Subsequent NIH Scale: 09/24/23
Time of Subsequent NIH Scale: 09:15
NIH Stroke Score
Level of Consciousness: 0 - Alert
LOC Questions: 0-Answers both correctly
LOC Commands: 0-Performs both correctly
Best Horizontal Gaze: 0-Normal
Visual Villafuerte: 0=Normal, no visual loss
Facial Palsy: 0=Normal, symmetrical
Motor - Right Arm: 1=Drift < 10 seconds
Motor - Left Arm: 0=No drift 10 seconds
Motor - Right Le-No drift 5 seconds
Motor - Left Le-No drift 5 seconds
Limb Ataxia: 1-Present in one limb
Sensation: 1-Mild loss
Best Language: 0-No aphasia
Dysarthria: 1-Mild slurring
Extinction and Inattention: 0-No abnormality
Total Score:: 4

Documented by User: Kike Toth MD 09/24/23 12:25
NIH Stroke Score
NIH Stroke Score
Total Score:: 4
[2023-09-24] MEDS: NSS 1000 IV (10:03)
[2023-09-24 12:42] LABS: HDL Cholesterol 52 mg/dl; LDL Cholesterol, Calculated 15 mg/dl; Total Cholesterol 90 mg/dl (50-199); Triglyceride 115 mg/dl (10-149); Very Low Density Lipoprotein 23 mg/dl (0-30)
--- NOTE | 2023-09-24 13:45 | PTCARENOTE ---
Received pt from ED.Pt awake, alert and oriented x3. Pt has slurred speech, NIH:4 unchanged from neurologist and neuro BACTERIOLOGY PROFESSOR assessment. Pt c/o pain in b/l shoulders and back, tolerable at this time. Pt VSS 94% on 3L.Pt oriented to room, swallow screen
completed, passed but speech consult in place, pt said at home occasionally she notes some trouble swallowing, additionally noticed some difficulty taking pills. Pt oriented to room, call louis within reach, plan of care ongoing.
[2023-09-24 13:49] LABS: Glycohemoglobin (HgbA1c) 6.1 % (4.0-5.6)
[2023-09-24] MEDS: NSS (PRESERVATIVE FREE) 0.25 ML IV (14:47)
[2023-09-24] MEDS: ATIVAN 1 MG IV (14:47)
--- NOTE | 2023-09-24 15:04 | CON.ONC ---
Impression
Impression
radiographic findings concering for widespread malignancy of unclear primary
right arm weakness
CVA - left caudate nucleus/ left internal capsule
Plan
Plan
1. Radiographic evidence concerning for widespread malignancy - of unclear etiology - CT imaging reviewed with patient - discussion has been had w/ IR regarding possible liver biopsy. Patient expressed that she is unclear if she would like to
proceed w/ diagnostic biopsy or further w/u. If she decides that she would like to proceed w/ biopsy, liver lesion seems reasonable initial site to potentially determine etiology. Additional pathologic assessment may be required. Agree w/ MRI brain
to evaluate CT findings as well as assess for possible metastasis. Will send tumor markers - CEA, CA 125, and CA 19-9.
Will continue to follow with you.
Patient History
History of Present Illness
78y/o female seen in oncology consultation today, regarding findings concerning for widespread malignancy on imaging.
The patient has a h/o CVA with residual right-sided weakness, paroxysmal A-fib on Eliquis, CAD s/p CABG X2, CKD, restless leg syndrome, anxiety, and bradycardia. She presented to the [facility] ER on 09/22 w/ generalized fatigue/lethargy and right
arm weakness. CXR in the ER revealed new extensive bilateral pulmonary nodules and fracture at T12. Head CT revealed 1.6 cm acute ischemic infarct in the left caudate nucleus and anterior limb of the left internal capsule containing cytotoxic
edema. Neurology has evaluated and MRI brain is pending.
CT chest/ abdomen and pelvis was also performed in the ER revealing innumerable bilateral pulmonary nodules consistent with metastases. Small right pleural effusion. Hepatic and splenic metastases. Retroperitoneal metastases. Omental metastatic
involvement with small volume ascites. Osseous metastases with multiple probably pathologic compression fracture deformities. Two likely pathologic right rib fractures. An abbnormal mass in the inferior mediastinum was also appreciated which
measures up to 4.3 cm in diameter, along w/ abnormal eccentric wall thickening of the rectum.
Clinically, the patient denies SOB at rest or chest pain. She denies other neurologic symptoms - no other weakness, headaches, speech or visual problems. No abdominal pain. No fevers or chills. No night sweats.
Past-Medical/Surgical History
PMH:
CAD status post CABG x 2
paroxysmal atrial fibrillation
prior CVA 3 years ago with residual right-sided weakness
bradycardia
hypertension
hyperthyroidism
chronic kidney disease'
anxiety
hyperlipidemia
glaucoma
former smoker
hyponatremia
PSH:
CABG x2
appendectomy
Social History
Tobacco: Former Smoker
Alcohol: Former
Drug: None
Family History
Family History: Not pertinent
Allergies: NKDA
Patient Medication
�Medication �Instructions �Recorded �Confirmed �Last Taken �Type
fluoxetine 20 mg capsule 20 mg PO DAILY #30 caps 03/05/21 09/23/23 09/22/23 Rx
multivitamin with folic acid 400 1 tab PO DAILY #30 tabs 03/05/21 09/23/23 09/22/23 Rx
mcg tablet (Tab-A-Muna)
rosuvastatin 20 mg tablet 20 mg PO DAILY #30 tabs 03/05/21 09/23/23 09/22/23 Rx
latanoprost 0.005 % eye drops 1 drp BOTH EYES HS Eye Condition 04/22/23 09/23/23 09/22/23 History
potassium chloride 10 mEq 10 meq PO BID Electrolyte Repletion 04/22/23 09/23/23 09/22/23 History
tablet,extended release
prednisone 5 mg tablet 10 mg PO DAILY inflammation 09/23/23 09/23/23 09/22/23 History
apixaban 5 mg tablet (Eliquis) 5 mg PO BID Blood Clot 09/24/23 09/23/23 09/22/23 History
Prevention/Tx
Active Medications
Generic Name Dose Route Start Last Admin
Trade Name Freq PRN Reason Stop Dose Admin
Ceftriaxone Sodium 1,000 mg 09/24/23 18:00
Ceftriaxone 1000 Mg / 10 Ml Vial IV
Q24H MARY
Fluoxetine HCl 20 mg 09/24/23 08:00 09/24/23 08:20
Fluoxetine 20 Mg Capsule PO 10/22/23 07:59 20 mg
DAILY MARY Administration
Sodium Chloride 1,000 mls @ 70 mls/hr 09/23/23 18:43 09/24/23 10:03
Nss IV 1,000 mls
.[id number] MARY Administration
Latanoprost 0 drop 09/23/23 22:00 09/23/23 22:01
Latanoprost 0.005% (Ophthalmic Solution) 2.5 Ml Bottle BOTH EYES 10/21/23 21:59 1 drop
HS MARY Administration
Lorazepam 1 mg 09/24/23 12:43 09/24/23 14:47
Lorazepam 2 Mg/Ml Vial IV 09/24/23 18:00 1 mg
ONCE PRN PRN Administration
CLAUSTRAPHOBIA, PRIOR TO MRI
Multivitamins Therapeutic 1 tablet 09/24/23 08:00 09/24/23 08:20
Multivitamin Tablet PO 10/22/23 07:59 1 tablet
DAILY MARY Administration
Ondansetron HCl 4 mg 09/23/23 18:43
Ondansetron 4 Mg/2 Ml Vial IV 10/21/23 18:42
Q6HPRN PRN
nausea and vomiting
Potassium Chloride 10 meq 09/23/23 20:00 09/24/23 08:25
Potassium Chloride 10 Meq Extended Release Tablet PO 10/21/23 19:59 10 meq
BID MARY Administration
Prednisone 10 mg 09/24/23 08:00 09/24/23 08:20
Prednisone 10 Mg Tablet PO 10/22/23 07:59 10 mg
DAILY MARY Administration
Rosuvastatin Calcium 20 mg 09/24/23 08:00 09/24/23 08:19
Rosuvastatin (Crestor) 20 Mg Tablet PO 10/22/23 07:59 20 mg
DAILY MARY Administration
Sodium Chloride 0 flush 09/23/23 19:00
Sodium Chloride 0.9% (Flush) Syringe IV 10/21/23 18:59
PER PROTOCOL MARY
Sodium Chloride 0.25 ml 09/24/23 10:49 09/24/23 14:47
Nss (Pf) 10 Ml Vial For Ativan 0.5 Mg Dose IV 09/24/23 18:00 0.25 ml
ONCE PRN PRN Administration
IV LORAZEPAM DILUTION
Sterile Water 10 ml 09/24/23 18:00
Sterile Water For Injection 10 Ml Vial IV 10/22/23 17:59
Q24H MARY
Review of Systems
-
An ROS was obtained w/ pertinent findings as per HPI.
Physical Exam
-
General: Well Developed and No Apparent Distress
Cardiology: Normal Sinus Rhythm
Pulmonary: Clear
GI: Soft; Negative Distended
Extremities: No C/C/E
Neurology: Other (right arm weakness)
Labs
Lab Results
WBC 20.2 10^3/uL (4.8-10.8) H 09/24/23 06:08
RBC 3.63 10^6/uL (4.20-5.40) L 09/24/23 06:08
Hgb 10.2 g/dL (12.0-16.0) L 09/24/23 06:08
Hct 32.9 % (37.0-47.0) L 09/24/23 06:08
MCV 90.6 fL (81.0-99.0) 09/24/23 06:08
MCH 28.1 pg (27.0-31.0) 09/24/23 06:08
MCHC 31.0 g/dL (33.0-37.0) L 09/24/23 06:08
RDW 15.7 % (11.5-14.5) H 09/24/23 06:08
Plt Count 237 10^3/uL (130-400) 09/24/23 06:08
MPV 9.5 fL (7.4-10.4) 09/24/23 06:08
Abs Immat Gran (auto) 0.3 10^3/uL (0-0.05) H 09/24/23 06:08
Absolute Neuts (auto) 16.6 10^3/uL (1.4-6.5) H 09/24/23 06:08
Absolute Lymphs (auto) 1.3 10^3/uL (1.2-3.4) 09/24/23 06:08
Absolute Monos (auto) 1.6 10^3/uL (0.1-0.6) H 09/24/23 06:08
Absolute Eos (auto) 0.3 10^3/uL (0-0.7) 09/24/23 06:08
Absolute Basos (auto) 0.1 10^3/uL (0-0.2) 09/24/23 06:08
Immature Gran % 1.3 % (0-0.5) H 09/24/23 06:08
Neutrophils % 82.3 % (42.2-75.2) H 09/24/23 06:08
Lymphocytes % 6.6 % (20.5-51.1) L 09/24/23 06:08
Monocytes % 8.0 % (1.7-9.3) 09/24/23 06:08
Eosinophils % 1.6 % (0-6) 09/24/23 06:08
Basophils % 0.2 % (0-2) 09/24/23 06:08
Creatinine 1.3 mg/dL (0.6-1.0) H 09/24/23 06:08
Vital Signs
Vital Signs
Temp Pulse Resp BP Pulse Ox
98.3 F 92 20 152/73 97
09/24/23 13:43 09/24/23 13:43 09/24/23 13:43 09/24/23 13:43 09/24/23 13:43
[2023-09-24] MEDS: PROCARDIA XL (EXTENDED RELEASE) 30 MG PO (17:24)
[2023-09-24] MEDS: STERILE WATER FOR INJECTION 10 ML IV (17:25)
[2023-09-24] MEDS: ROCEPHIN 1000 MG IV (17:25)
[2023-09-24 18:30] LABS: CEA 5.41 ng/ml
[2023-09-24 19:15] LABS: CA 125 1050 U/mL (0-35)
[2023-09-24] MEDS: XALATAN OPHTHALMIC SOLUTION 1 DROP BOTH EYES (22:13)
[2023-09-25 04:51] VITALS: BP 166/71
[2023-09-25 07:09] VITALS: BP 95/63
--- NOTE | 2023-09-25 08:40 | W.PN.HOSP.TC ---
Today's Communication/Plan
-
.
Assessment / Plan
Assessment / Plan
Physical Exam
General: No Apparent Distress
HEENT: Normocephalic, Moist mucous membranes and Atraumatic
Respiratory: rhonchi bilaterally
Cardiac: S1/S2
GI: Soft, Non Tender, Non Distended and Normal Bowel Sounds;
Rectal: No rectal bleeding
Musculoskeletal: No Clubbing, No Cyanosis and No Edema
Skin: No Rash
Neuro: right upper and low extremity weakness noted, no tremors, no slurred speech
Psych : no agitation
# GOC
Patient agreeable to do liver biopsy. She is oriented x 3. Lucid. She was very clear not to inform her family, specially her children. She reported that her Sister Bianka will be her environmental marketing representative if she becomes incapacitated.
#Acute ischemic stroke of the left postcentral gyrus. Other scattered tiny acute cortical infarcts are noted, bilaterally.
Right sided weakness.
CT & MRI studies are reviewed.
Hold apixaban
-Aspirin 81 mg daily
-Neurologic checks and NIH stroke scale
-Goal normotension
-Speech/ PT/OT
-Appreciate neurology input
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
unknown primary
Does not do her regular mammogram or colonoscopy
I d/w IR, liver biopsy, seems a feasible option
d/w with pt at length, also joined by oncologist, she agreed to pursue diagnostic work up but was very strict to not inform her family.
Discussed with oncology, started dexamethasone 2 mg twice daily.
Appreciate IR and oncology help
# Urinary tract infection with E. coli. Pansensitive. Uncomplicated.
Negative blood cultures
Will do 3 days of Ceftriaxone
#CAD status post CABG x 2
-Continue aspirin
#Paroxysmal atrial fibrillation
-Hold Eliquis with new stroke
#Bradycardia
#Essential hypertension
Losartan was not on her med list. Will start her on low-dose nifedipine with hlding parameters.
#Hyperthyroidism
-Continue methimazole
-Continue prednisone
#Chronic kidney disease 3B
Creatinine is down to 1.2
stop IVF
Monitor creatinine
No hematuria
No flank pain
#Chronic lower extremity edema
-Hold Lasix
#Anxiety
-Continue diazepam
-Continue fluoxetine
#Hyperlipidemia
-Continue statin
#Glaucoma
-Continue latanoprost
#Former smoker
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
-Monitor sodium level, she is AAOX3
�Total time spent to see patient, examine the patient on the floor, review data and lab results, discuss treatment plan with patient, consultants, nursing staff around 55 minutes
Anticipated Discharge: > 48 hours
Subjective/Interval History
-
Date of Service: September 25, 2023
No chest pain
No sob
Denies headache
Objective Data
-
Labs:
Laboratory Results
09/25/23
06:08
WBC Pending
Hgb Pending
Hct Pending
Plt Count Pending
Sodium Pending
Potassium Pending
Chloride Pending
Carbon Dioxide Pending
BUN Pending
Creatinine Pending
Glucose Pending
Calcium Pending
Vital Signs:
Vital Signs
Temp Pulse Resp BP Pulse Ox
98.4 F 80 20 166/71 97
09/24/23 23:35 09/25/23 04:51 09/24/23 23:35 09/25/23 04:51 09/24/23 23:35
I&O
09/24/23 09/25/23 09/26/23
06:59 06:59 06:59
Intake Total 480 / 480
Balance 480 / 480
[2023-09-25] MEDS: DELTASONE 10 MG PO (09:57)
[2023-09-25] MEDS: PROZAC 20 MG PO (09:57)
[2023-09-25] MEDS: THERAGRAN 1 TABLET PO (09:57)
[2023-09-25] MEDS: KCL 10 MEQ PO ×2 (09:57→20:59)
[2023-09-25] MEDS: CRESTOR 20 MG PO (09:58)
[2023-09-25] MEDS: PROCARDIA XL (EXTENDED RELEASE) PO (10:05)
[2023-09-25 10:08] LABS: Blood Urea Nitrogen 33 mg/dl (7-17); Calcium 8.5 mg/dl (8.4-10.2); Carbon Dioxide 27 mmol/L (22-30); Chloride 101 mmol/L (98-107); Estimated Creatinine Clearance 34 ml/min; Glucose 87 mg/dl (70-99); Potassium 3.9 mmol/L (3.5-5.1); Sodium 131 mmol/L (135-145); eGFR 46.33
[2023-09-25 10:40] LABS: Hematocrit 33.5 % (37.0-47.0); Hemoglobin 10.7 g/dL (12.0-16.0); Mean Corp Hgb Conc. 31.9 g/dL (33.0-37.0); Mean Corpuscular Hgb 27.9 pg (27.0-31.0); Mean Corpuscular Volume 87.5 fL (81.0-99.0); Mean Platelet Volume 8.9 fL (7.4-10.4); Platelet Count 266 10^3/uL (130-400); Red Blood Cell Count 3.83 10^6/uL (4.20-5.40); Red Cell Dist. Width 15.9 % (11.5-14.5); White Blood Cell Count 24.1 10^3/uL (4.8-10.8)
--- NOTE | 2023-09-25 10:54 | PTOTSP ---
SPEECH THERAPY SWALLOW EVALUATION:
Clinical signs of oropharyngeal dysphagia, likely [id number] related to weakness/deconditiong secondary to acute CVA and extensive metastatic cancer of unknown origin. No signs of aspiration observed during evaluation, though pt endorses signs
of aspiration with liquids occasionally. Patient is at risk for aspiration and related complications given metastatic cancer to brain/lungs as well as CVA. Given pt performance at bedside, patient appears safe to continue oral diet at this time. Pt
will likely need instrumental assessment of swallowing to further assess swallow physiology; ST to follow-up Monday 09/25 to determine indication for VFSS. Education provided to patient regarding aspiration precautions and potential indication for
VFSS procedure.
RECOMMEND:
1) IDDSI Level 6 Soft and Bite size diet, thin liquids
2) Meds crushed in puree
3) Strict Aspiration Precautions: upright positioning; single sips; Slow rate; only provide p.o. if SpO2>90% and RR<30; d/c oral diet if signs of aspiration or a decline in respiratory/mental status
4) ST to follow closely, determine indication for VFSS, monitor CXR and labs (WBC currently elevated, though pt on steroids), provide continued education regarding aspiration risks/precautions, and provide continued diagnostic therapy as appropriate.
[2023-09-25] MEDS: TYLENOL 1000 MG PO ×2 (12:40→21:04)
[2023-09-25] MEDS: LIDOCAINE 4% PATCH 1 PATCH TOPICAL (12:41)
[2023-09-25 13:40] VITALS: BP 131/65; PULSE 97; O2SAT 94
[2023-09-25 15:26] VITALS: BP 152/63
[2023-09-25] MEDS: TYLENOL PO (15:47)
[2023-09-25] MEDS: ZOFRAN 4 MG IV (15:48)
--- NOTE | 2023-09-25 16:17 | W.PN.PUL3 ---
Today's Communication / Plan
-
O2
Liver biopsy
Reconsult prn
Assessment
-
Assessment: 78-year-old female with a past medical history of stroke with residual right-sided weakness, paroxysmal A-fib on Eliquis, CAD s/p CABG X2, restless leg syndrome, anxiety, and history of bradycardia who presents from home with generalized
weakness x 3 days. In the ER patient saturating 93% on room air and was afebrile to 97.4 �F, pulse rate 85 and BP 140/57; RR: 20. Labs showed leukocytosis to 20.6, hyponatremia 132, low serum chloride of 97, elevated serum bicarbonate of 31,
elevated creatinine 1.5 which is around her baseline, urinalysis positive for UTI, COVID antigen is negative. Urine culture was collected and blood cultures also collected. Flu swab A/B negative. CXR showed multiple large solid pulmonary nodules
bilaterally concerning for metastatic disease. CT head showed a 1.6 cm acute ischemic infarct in the left caudate nucleus and anterior limb of the left internal capsule with cytotoxic edema. CT chest, abdomen, pelvis also confirmed innumerable
bilateral pulmonary nodules with a left inferior mediastinal mass measuring 4.3 x 3.2 x 3.8 cm with mass effect against the left atrium and pulmonary veins. Also evidence of hepatic and splenic metastasis with retroperitoneal metastasis and omental
metastatic involvement with small volume ascites. Rectum also shows distal wall thickening which appears eccentric. She was given antibiotics in the ER with ceftriaxone and given IV fluids with NS 0.9% x 500cc, and admitted to the hospitalist
service. Given multiple pulmonary nodules with concern for metastatic disease, pulmonary now consulted for additional management/recommendations.
Chronic conditions MACHINE SETTER: CAD s/p CABG X2, paroxysmal A-fib on Eliquis, history of CVA with residual right-sided weakness, history of bradycardia, hypertension, RLS, cataracts, anxiety, glaucoma
Impression:
#Mediastinal mass in left inferior mediastinum with multiple pulmonary nodules and hilar lymphadenopathy (R>L) concerning for metastatic disease
#Retroperitoneal/omental metastasis with malignant ascites
#Left basal ganglia acute ischemic CVA (seen on CT head from 09/23/2023)
#T12 acute superior endplate fracture, possibly a pathological fracture
#Positive urinalysis suggestive of UTI
#Hypochloremic, hyponatremia
#ELENA on CKD (baseline Cr approximately 1.2)
Plan:
- Unfortunately widely metastatic disease on imaging studies: lung, mediastinum, liver, spleen, omentum, RP, brain, T12
Agreed to liver biopsy, to be performed early next week
- Oncology consult - recs appreciated
- neuro consult appreciated
- Maintain SpO2 >90-94% with supplemental O2 as needed. On new onset O2
- Incentive spirometer encouraged
- Replete electrolytes with K>4, Mg>2
- Maintain euglycemia with goal BG >100 and <180
- prn nebulized bronchodilators
- DVT ppx
DNR status
Patient does not want to let their children know about suspected metastatic disease until after results of liver biopsy
Overall prognosis guarded, patient aware
Please reconsult as needed: should liver biopsy nondiagnostic we can proceed to bronchoscopy
Data:
CT Chest/Abdomen/Pelvis with IV Contrast 09-24-2023:
1. Innumerable bilateral pulmonary nodules consistent with metastases. Small right pleural effusion.
2. Hepatic and splenic metastases. Retroperitoneal metastases. Omental metastatic involvement with small volume ascites. Osseous metastases with multiple probably pathologic compression fracture deformities as above. Two likely pathologic right
rib fractures as above.
3. Site of primary malignancy is not definitively identified. There is abnormal mass in the inferior mediastinum which measures up to 4.3 cm in diameter as above. This could be related to metastasis or potentially primary malignancy, could be
further evaluated with endoscopy. There is also abnormal eccentric wall thickening of the rectum as above which could be inflammatory or neoplastic.
CT Head 09-23-2023:
1. 1.6 cm ACUTE ISCHEMIC INFARCT in the left caudate nucleus and anterior limb of the left internal capsule containing cytotoxic edema.
2. Small chronic transcortical infarct in the left insular cortex.
3. Small chronic lacunar infarcts in both thalami.
4. Severe white matter leukoaraiosis in the frontal and parietal lobes.
5. Moderate volume loss in the frontal and parietal lobes.
CXR 09-23-2023:
1. NEW EXTENSIVE BILATERAL PULMONARY METASTATIC DISEASE with multiple solid pulmonary nodules in the lungs which appear new from 04/22/2023.
2. Mild scarring and subsegmental atelectasis in both lower lungs.
3. Previous CABG surgery.
4. New superior endplate fracture of T12 with anterior vertebral body collapse (possibly a metastatic pathologic fracture).
Subjective Data
-
Date of Service:
Date of Service: September 25, 2023
Chief Complaint: Pulmonary Follow Up
Subjective:
No major events reported
Continues on new onset oxygen
Former smoker
Agreed to liver biopsy, to be performed next Wednesday
She does not want to communicate working diagnosis with her son and daughter yet, she wants to tell them herself after biopsy results are delivered
Review of Systems
General: Fever (n), Sweats (n), Chills (n) and Satisfactory Appetite
Cardiopulmonary: Dyspnea, Cough, Wheezing (n) and Chest Pain (n)
GI: Abdominal Pain (discomfort), Nausea (n) and Vomiting (n)
Neuro: Weakness
Objective Data
Data Reviewed
Vital Signs / I&O / Oxygen:
Vital Signs
Temp Pulse Resp BP Pulse Ox
98.7 F 97 18 152/63 96
09/25/23 15:26 09/25/23 15:26 09/25/23 15:26 09/25/23 15:26 09/25/23 15:26
Intake and Output
09/24/23 09/25/23 09/26/23
06:59 06:59 06:59
Intake Total 480 / 480
Balance 480 / 480
SaO2 96
Nasal Cannula flow liters per 3
minute
Physical Exam
General: Respiratory Distress (mild)
HEENT: Normocephalic and Moist Mucous Membranes
Cardiovascular: Regular Rhythm and Peripheral Edema (n)
Respiratory: Rhonchi, Accessory Resp Muscle Use (mild) and Stridor (n)
GI: Soft, Non Distended and Non Tender
Neurology: Awake, Oriented and No Motor Deficits
Skin: Warm
Labs/Micro/Reports
Lab Data
09/25/23 10:33
09/25/23 09:47
Microbiology
09/23/23 15:05 Blood/Venous Blood Culture - Preliminary
No Growth in 48 hours- Final report to follow
09/23/23 15:05 Blood/Venous Blood Culture - Preliminary
No Growth in 48 hours- Final report to follow
09/23/23 14:41 Urine Urine Culture - Final
Escherichia coli
09/23/23 15:05 Nasal Swab Influenza Types A & B (JAVIER) - Final
Negative for Influenza A & B, NAAT
Negative results must be combined with clinical observations
and patient history.
Nucleic Acid Amplification test (NAAT)performed on the
[employer] platform.
[2023-09-25] MEDS: COMPAZINE 10 MG IV (16:22)
--- NOTE | 2023-09-25 16:31 | W.PN.UPDATE ---
Update Note
Progress Note Update
I was called to see the patient for shortness of breath and nausea
Patient is hemodynamically stable. She complained of nausea. EKG was done stat with no acute ischemic changes
No worsening wheezes
she was given Zofran, still nausea. Will try Compazine
Talked to the patient again regarding informing her family. Patient was adamant to not to talk to her family's. I asked her if she wanted me to call her sister. Patient refused. Patient still wanted sister to represent her if she becomes
incapacitated. Myself and the nurse talked to her at length and she started to get upset about bringing up the subject of informing her family again. She is lucid and competent.
I asked the patient what if she goes into cardio-pulmonary arrest and dies, she said (then I will and you call them).
--- NOTE | 2023-09-25 18:00 | PTCARENOTE ---
Pts sister and her came to visit her. Patient told sister that ' she has cancer everywhere and has 4 weeks to live' Pt gave permission for this RN to talk to sister. Told sister that plan is for biopsy Wednesday to determine prognosis. Pt still
does not want her children to know whats going on. Sister is going to reach out to family ( only her 2 other sisters at this time) on her behalf. Plan of care continues, pt more comfortable after Compazine administration, says breathing feels
better. Call louis within reach,HOB elevated.
[2023-09-25] MEDS: ROCEPHIN 1000 MG IV (18:29)
[2023-09-25] MEDS: STERILE WATER FOR INJECTION 10 ML IV (18:29)
[2023-09-25] MEDS: XALATAN OPHTHALMIC SOLUTION 1 DROP BOTH EYES (21:04)
[2023-09-25 23:15] VITALS: BP 131/62
[2023-09-26 07:09] LABS: Hematocrit 31.9 % (37.0-47.0); Hemoglobin 10.1 g/dL (12.0-16.0); Mean Corp Hgb Conc. 31.7 g/dL (33.0-37.0); Mean Corpuscular Volume 88.4 fL (81.0-99.0); Mean Platelet Volume 9.3 fL (7.4-10.4); Platelet Count 210 10^3/uL (130-400); Red Blood Cell Count 3.61 10^6/uL (4.20-5.40); Red Cell Dist. Width 15.6 % (11.5-14.5); White Blood Cell Count 18.7 10^3/uL (4.8-10.8)
[2023-09-26 07:35] VITALS: BP 150/64
[2023-09-26 07:42] LABS: Blood Urea Nitrogen 34 mg/dl (7-17); Calcium 8.1 mg/dl (8.4-10.2); Carbon Dioxide 26 mmol/L (22-30); Chloride 102 mmol/L (98-107); Estimated Creatinine Clearance 37 ml/min; Glucose 83 mg/dl (70-99); Sodium 131 mmol/L (135-145); eGFR 51.43
[2023-09-26] MEDS: LOW STRENGTH ASPIRIN 81 MG PO (08:40)
[2023-09-26] MEDS: TYLENOL 1000 MG PO ×3 (08:40→21:01)
[2023-09-26] MEDS: PROCARDIA XL (EXTENDED RELEASE) 30 MG PO (08:41)
[2023-09-26] MEDS: LIDOCAINE 4% PATCH 1 PATCH TOPICAL (08:42)
[2023-09-26] MEDS: THERAGRAN 1 TABLET PO (08:43)
[2023-09-26] MEDS: DELTASONE 10 MG PO (08:43)
[2023-09-26] MEDS: CRESTOR 20 MG PO (08:43)
[2023-09-26] MEDS: PROZAC 20 MG PO (08:43)
[2023-09-26] MEDS: KCL 10 MEQ PO ×2 (08:44→20:49)
--- NOTE | 2023-09-26 09:56 | W.PN.HOSP.TC ---
Today's Communication/Plan
-
.
Assessment / Plan
Assessment / Plan
Physical Exam
General: No Apparent Distress
HEENT: Normocephalic, Moist mucous membranes and Atraumatic
Respiratory: rhonchi bilaterally
Cardiac: S1/S2
GI: Soft, Non Tender, Non Distended and Normal Bowel Sounds;
Rectal: No rectal bleeding
Musculoskeletal: No Clubbing, No Cyanosis and No Edema
Skin: No Rash
Neuro: right upper and low extremity weakness noted, no tremors, no slurred speech
Psych : no agitation
# GOC
Patient agreeable to do liver biopsy. She is oriented x 3. Lucid. She was very clear not to inform her family, specially her children. She reported that her Sister Bianka will be her outside industrial sales representative if she becomes incapacitated. patient wanted
DNR/DNI.
# Nausea
c/w PRN Compazine
#Acute ischemic stroke of the left postcentral gyrus. Other scattered tiny acute cortical infarcts are noted, bilaterally.
Right sided weakness.
CT & MRI studies are reviewed.
Hold apixaban
-Aspirin 81 mg daily
-Neurologic checks and NIH stroke scale
-Goal normotension
-Speech/ PT/OT
-Appreciate neurology input
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
unknown primary
Does not do her regular mammogram or colonoscopy
I d/w IR, liver biopsy, seemed a feasible option
d/w with pt at length, also joined by oncologist, she agreed to pursue diagnostic work up but was very strict to not inform her family.
Discussed with oncology. ok with steroid
Patient was on prednisone 5 mg at home but recently increased to 10 mg for SOB, keep that dose.
Appreciate IR and oncology help
# Urinary tract infection with E. coli. Pansensitive. Uncomplicated.
Negative blood cultures
To finish 3 days of Ceftriaxone.
#CAD status post CABG x 2
-Continue aspirin
#Paroxysmal atrial fibrillation
-Hold Eliquis with new stroke
#Bradycardia
#Essential hypertension
Started on low-dose nifedipine with holding parameters.
#Hyperthyroidism
-Continue methimazole
-Continue prednisone
#Chronic kidney disease 3B
Creatinine is down to 1.1
stop IVF
Monitor creatinine
No hematuria
No flank pain
#Chronic lower extremity edema
-Hold Lasix
#Anxiety
-Continue diazepam
-Continue fluoxetine
#Hyperlipidemia
-Continue statin
#Glaucoma
-Continue latanoprost
#Former smoker
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
-Monitor sodium level, she is AAOX3
�Total time spent to see patient, examine the patient on the floor, review data and lab results, discuss treatment plan with patient, consultants, nursing staff around 57 minutes
Anticipated Discharge: > 48 hours
Subjective/Interval History
-
Date of Service: September 26, 2023
No chest pain
No nausea
Less sob
Objective Data
-
Labs:
Laboratory Results
09/26/23
05:50
WBC 18.7 H
Hgb 10.1 L
Hct 31.9 L
Plt Count 210 D
Sodium 131 L
Potassium 4.0
Chloride 102
Carbon Dioxide 26
BUN 34 H
Creatinine 1.1 H
Glucose 83
Calcium 8.1 L
Vital Signs:
Vital Signs
Temp Pulse Resp BP Pulse Ox
97.9 F 87 20 150/64 98
09/26/23 07:35 09/26/23 07:35 09/26/23 07:35 09/26/23 07:35 09/26/23 07:35
I&O
09/25/23 09/26/23 09/27/23
06:59 06:59 06:59
Intake Total 480 / 480
Output Total 250 / 250
Balance 480 / 480 -250 / -250
--- NOTE | 2023-09-26 13:59 | W.PN.NEURO.1 ---
Today's Communication / Plan
-
no anticoagulation for 7 days from stroke onset, ASA in meantime
considering hospice
Neuro Assessment/Plan
Assessment
78-year-old woman with atrial fibrillation on apixaban as an outpatient, coronary artery disease, CKD presented to hospital with onset of right arm weakness. Over time she has also developed RLE weakness.
Patient has been compliant with Eliquis.
Assessment: MRI brain confirms stroke and brain metastates.
MRi brain report:
Numerous peripheral enhancing metastatic lesions are demonstrated. Dominant/index lesion in the superior left frontal lobe measures 1.7 cm. Also dominant lesion in the head of the caudate nucleus measuring 1.2 cm.
Multiple additional smaller/subcentimeter lesions are noted in the anterior and mid left temporal lobe, inferior medial mid right temporal lobe and posterior right temporal hyperdense and parietal lobe. Few scattered small lesions in the bilateral
frontal and left parietal lobes. Right paramidline occipital lobe. 1 mm enhancing right cerebellar lesion. 2 mm enhancing left cerebellar lesion.
The larger metastatic foci are associated with mild to moderate adjacent and surrounding vasogenic edema. There is minimal extrinsic impression upon the anterior horn left lateral ventricle secondary to the lesion in the caudate head. However, no
other associated significant mass effect. No midline shift.
Mild acute infarct involving the left postcentral gyrus. Other scattered tiny acute cortical infarcts are noted, bilaterally.
There is moderate chronic microvascular white matter ischemic disease.
Moderate global atrophy.
She also has stage IV metastatic cancer with hepatic and brain metastatic disease.
MRA neck:
On the left, there appears to be greater than 50% stenosis in the region of the left carotid bulb and/or proximal ICA. Difficult to accurately quantify given motion degradation.
On the right, mild approximately 50% suggested in the region of the proximal right ICA.
Plan
Recommendations
-Hold apixaban for a total of 7 days given stroke size, risk of hemorrhagic conversion.
-MRA findings reviewed; would hold off on vascular consult given widespread metastases.
-Placed on aspirin 81 mg daily in the meantime
-further w/u for cancer per onc, on steroids
-Neurologic checks and NIH stroke scale
-Goal normotension
-Speech physical therapy evaluations
-Considering hospice.
Neurology is signing off. Please call with further questions.
Subjective/Objective
Subjective Data
Date of Service: September 26, 2023
still having right sided weakness, feels very fatigued
Objective Data
Vital Signs
Temp Pulse Resp BP Pulse Ox
97.9 F 87 20 150/64 98
09/26/23 07:35 09/26/23 07:35 09/26/23 07:35 09/26/23 07:35 09/26/23 07:35
Lab Results
09/26/23 05:50
09/26/23 05:50
Sodium 131 mmol/L (135-145) L 09/26/23 05:50
Potassium 4.0 mmol/L (3.5-5.1) 09/26/23 05:50
BUN 34 mg/dl (7-17) H 09/26/23 05:50
Glucose 83 mg/dl (70-99) 09/26/23 05:50
Calcium 8.1 mg/dl (8.4-10.2) L 09/26/23 05:50
LDL Cholesterol, Calc 15 mg/dl 09/24/23 06:08
Patient Allergies
No Known Allergies Allergy (Verified 09/23/23 13:19)
Physical Exam
Extended Neurological Exam
Mood & Affect: Depressed
Attention Span & Concentration: Awake, Alert and Interactive
Memory: Unremarkable
Involuntary Movement: None
Speech: Quality Unremarkable, Quantity Unremarkable and Rate of Production Unremarkable
Cranial Nerve II: Left Eye: Pupillary Reactivity Unremarkable and Pupillary Size Unremarkable
Cranial Nerve II: Right Eye: Pupillary Reactivity Unremarkable and Pupillary Size Unremarkable
Cranial Nerves III, IV, : Extraocular Movement: Extraocular Movement Full in all Directions
Cranial Nerve V: Facial Sensation: Facial Sensation Unremarkable to Cold
Cranial Nerve VII: Facial Symmetry: Normal Facial Symmetry
Cranial Nerve VIII: Hearing: Unremarkable Hearing to Normal Conversational Volume
Cranial Nerves IX, X: Palate Movement: Palate Elevation Symmetric
Cranial Nerve XI: Shoulder Shrug: Unremarkable
Cranial Nerve XII: Tongue Protusion: Midline
Muscle Strength, Overall: Other (RUE 1/5, RLE 3-4/5; L side full)
Deep Tendon Reflexes: Unremarkable Throughout
Cold Sensation: Unremarkable
Touch Sensation: Unremarkable
Coordination: [id number] Testing Unremarkable
Babinski Sign: Absent Bilaterally
--- NOTE | 2023-09-26 15:06 | CM ---
Alert awake oriented patient who lives with son John in a 2 story home with 5 step to enter and 5 steps to bed room . She is independent in driving and all activities of daily living.She is on new oxygen here. She uses a walker.
[facility] hx/VN hx
Pharmacy [facility]
PCP Dr Tracey
PLAN Will need PT OT for dc planning
[2023-09-26 15:41] VITALS: BP 129/66
[2023-09-26 15:51] VITALS: BP 129/66; PULSE 99; O2SAT 93
[2023-09-26] MEDS: ROCEPHIN 1000 MG IV (17:56)
[2023-09-26] MEDS: STERILE WATER FOR INJECTION 10 ML IV (17:57)
[2023-09-26 20:02] LABS: CA 19-9 26 U/mL (<=35)
[2023-09-26] MEDS: XALATAN OPHTHALMIC SOLUTION 1 DROP BOTH EYES (21:02)
[2023-09-26 23:39] VITALS: BP 125/48
[2023-09-27] VITALS (8 sets, daily range): BP systolic 92–164; BP diastolic 57–93
[2023-09-27 08:25] LABS: INR 1.14; PT 14.5 Sec (11.4-14.6)
[2023-09-27] MEDS: TYLENOL 1000 MG PO ×2 (09:00→16:58)
[2023-09-27] MEDS: LIDOCAINE 4% PATCH TOPICAL (09:00)
[2023-09-27] MEDS: THERAGRAN 1 TABLET PO (09:01)
[2023-09-27] MEDS: PROZAC 20 MG PO (09:01)
[2023-09-27] MEDS: PROCARDIA XL (EXTENDED RELEASE) 30 MG PO (09:01)
[2023-09-27] MEDS: CRESTOR 20 MG PO (09:01)
[2023-09-27] MEDS: DELTASONE 10 MG PO (09:02)
[2023-09-27] MEDS: KCL 10 MEQ PO ×2 (09:02→19:54)
[2023-09-27] MEDS: LOW STRENGTH ASPIRIN PO (09:03)
[2023-09-27 09:27] LABS: ALT (SGPT) 19 U/L (0-35); AST (SGOT) 40 U/L (14-36); Albumin 2.5 g/dl (3.5-5.0); Alkaline Phosphatase 114 U/L (38-126); Direct Bilirubin 0.3 mg/dl (0.0-0.4); Total Bilirubin 0.3 mg/dl (0.2-1.3); Total Protein 4.6 g/dl (6.3-8.2)
--- NOTE | 2023-09-27 11:36 | W.PN.HOSP.TC ---
Today's Communication/Plan
-
IRAD for bx
onc recs
cont asa
Assessment / Plan
Assessment / Plan
Physical Exam
General: No Apparent Distress
HEENT: Normocephalic, Moist mucous membranes and Atraumatic
Respiratory: rhonchi bilaterally
Cardiac: S1/S2
GI: Soft, Non Tender, Non Distended and Normal Bowel Sounds;
Rectal: No rectal bleeding
Musculoskeletal: No Clubbing, No Cyanosis and No Edema
Skin: No Rash
Neuro: right upper and low extremity weakness noted, no tremors, no slurred speech
Psych : no agitation
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
unknown primary
Does not do her regular mammogram or colonoscopy
Discussed with interventional radiology patient with severe ascites and liver biopsy not amenable. Plan to do left retroperitoneal lymph node biopsy
Continued on steroids
Patient was on prednisone 5 mg at home but recently increased to 10 mg for SOB, keep that dose.
Appreciate IR and oncology help
# Nausea
c/w PRN Compazine
#Acute ischemic stroke of the left postcentral gyrus. Other scattered tiny acute cortical infarcts are noted, bilaterally.
Right sided weakness.
CT & MRI studies are reviewed.
Hold apixaban
-Aspirin 81 mg daily
-Neurologic checks and NIH stroke scale
-Goal normotension
-Speech/ PT/OT
-Appreciate neurology input
# Urinary tract infection with E. coli. Pansensitive. Uncomplicated.
Negative blood cultures
complete course with 3d of rocephin
#CAD status post CABG x 2
-Continue aspirin
#Paroxysmal atrial fibrillation
-Hold Eliquis with new stroke
#Bradycardia
#Essential hypertension
Started on low-dose nifedipine with holding parameters.
#Hyperthyroidism
-Continue methimazole
-Continue prednisone
#Chronic kidney disease 3B
Creatinine is down to 1.1
stop IVF
Monitor creatinine
No hematuria
No flank pain
#Chronic lower extremity edema
-Hold Lasix
#Anxiety
-Continue diazepam
-Continue fluoxetine
#Hyperlipidemia
-Continue statin
#Glaucoma
-Continue latanoprost
#Former smoker
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
-Monitor sodium level, she is AAOX3
Code status DNR/DNI
Prolonged discussion with patient by myself , once again patient reiterated that she did not want her family members to be contacted. She stated if in case she becomes incapacitated that her Sister Bianka to be called.
Anticipated Discharge: > 48 hours
Subjective/Interval History
-
Date of Service: September 27, 2023
Remains on oxygen
Agreeable for biopsy
Explained in details the rationale behind undergoing the procedure-pt agreeable for it
Objective Data
-
Labs:
Laboratory Results
09/26/23 09/27/23
05:50 07:56
PT 14.5
INR 1.14
Sodium 131 L
Potassium 4.0
Chloride 102
Carbon Dioxide 26
BUN 34 H
Creatinine 1.1 H
Glucose 83
Calcium 8.1 L
Total Bilirubin 0.3
AST 40 H
ALT 19
Alkaline Phosphatase 114
Vital Signs:
Vital Signs
Temp Pulse Resp BP Pulse Ox
97.9 F 88 20 125/48 94
09/27/23 07:30 09/27/23 09:01 09/27/23 07:30 09/27/23 09:01 09/27/23 07:30
I&O
09/26/23 09/27/23 09/28/23
06:59 06:59 06:59
Intake Total 240 / 240
Output Total 250 / 250 275 / 275
Balance -250 / -250 -35 / -35
Data Reviewed
-
Total Time Spent with Patient (in minutes): 58
--- NOTE | 2023-09-27 19:12 | PTCARENOTE ---
Patient had liver biopsy today. Patient remained on bedrest for two hours. No bleeding noted. Patient with stable vital signs.
[2023-09-27] MEDS: XALATAN OPHTHALMIC SOLUTION 1 DROP BOTH EYES (19:55)
[2023-09-27] MEDS: COMPAZINE 10 MG IV (21:43)
--- NOTE | 2023-09-27 21:45 | PTCARENOTE ---
Patient with nausea and vomited a large amount. Medicated with compazine as ordered prn for vomiting. Patient at this time is very anxious and restless. Complaining of pain all over, unable to rate. She would like some valium, she states they gave
it to her in the emergency room. ONCOLOGY NAVIGATOR contacted and asked if patient could have something to help her pain and her anxiety.
[2023-09-27] MEDS: TYLENOL PO (21:49)
[2023-09-28] VITALS (7 sets, daily range): BP systolic 133–163; BP diastolic 59–98; PULSE 89–91; O2SAT 94
[2023-09-28] MEDS: TYLENOL/FEVERALL 650 MG RECTAL (01:34)
[2023-09-28] MEDS: MELATONIN 5 MG PO (01:34)
--- NOTE | 2023-09-28 03:00 | PTCARENOTE ---
Melatonin and AR tylenol given with good results, patient is sleeping at present. She refuses to allow us to turn her or put pillow under calfs at this time. Refusing sequential's also.
--- NOTE | 2023-09-28 05:41 | PTCARENOTE ---
Patient continues to be very anxious and tearful, wants some valium. SUPER[employer]OR [employer] unable to order due to her neuro status and her history of bradycardia. SUPERVISOR GATE SERVICES in to see patient and said she would order some melatonin.
[2023-09-28 06:53] LABS: % Basophils 0.3 % (0-2); % Eosinophils 0.2 % (0-6); % Immature Granulocytes 2.1 % (0-0.5); % Lymphocytes 2.9 % (20.5-51.1); % Monocytes 6.6 % (1.7-9.3); % Neutrophils 87.9 % (42.2-75.2); Absolute Basophils 0.1 10^3/uL (0-0.2); Absolute Eosinophils 0.1 10^3/uL (0-0.7); Absolute Immature Granulocytes 0.6 10^3/uL (0-0.05); Absolute Lymphocytes 0.8 10^3/uL (1.2-3.4); Absolute Monocytes 1.8 10^3/uL (0.1-0.6); Absolute Neutrophils 24.4 10^3/uL (1.4-6.5); Hematocrit 33.1 % (37.0-47.0); Hemoglobin 10.6 g/dL (12.0-16.0); Mean Corpuscular Volume 87.3 fL (81.0-99.0); Mean Platelet Volume 8.7 fL (7.4-10.4); Nucleated Red Blood Cells % 0 %; Platelet Count 219 10^3/uL (130-400); Red Blood Cell Count 3.79 10^6/uL (4.20-5.40); Red Cell Dist. Width 15.9 % (11.5-14.5); White Blood Cell Count 27.8 10^3/uL (4.8-10.8)
[2023-09-28 07:18] LABS: Blood Urea Nitrogen 39 mg/dl (7-17); Calcium 8.4 mg/dl (8.4-10.2); Carbon Dioxide 28 mmol/L (22-30); Chloride 100 mmol/L (98-107); Estimated Creatinine Clearance 31 ml/min; Glucose 108 mg/dl (70-99); Potassium 4.8 mmol/L (3.5-5.1); Sodium 131 mmol/L (135-145); eGFR 42.09
[2023-09-28] MEDS: LIDOCAINE 4% PATCH TOPICAL (10:04)
[2023-09-28] MEDS: CRESTOR 20 MG PO (10:05)
[2023-09-28] MEDS: PROCARDIA XL (EXTENDED RELEASE) 30 MG PO (10:05)
[2023-09-28] MEDS: DELTASONE 10 MG PO (10:05)
[2023-09-28] MEDS: THERAGRAN 1 TABLET PO (10:05)
[2023-09-28] MEDS: PROZAC 20 MG PO (10:05)
[2023-09-28] MEDS: TYLENOL 1000 MG PO ×2 (10:05→21:07)
[2023-09-28] MEDS: LOW STRENGTH ASPIRIN 81 MG PO (10:05)
[2023-09-28] MEDS: KCL PO (10:07)
--- NOTE | 2023-09-28 11:18 | W.PN.HOSP.TC ---
Today's Communication/Plan
-
CM/Hospice
pain control
hold lasix
prognosis poor
Assessment / Plan
Assessment / Plan
Physical Exam
General: No Apparent Distress
HEENT: Normocephalic, Moist mucous membranes and Atraumatic
Respiratory: rhonchi bilaterally
Cardiac: S1/S2
GI: Soft, Non Tender, Non Distended and Normal Bowel Sounds;
Rectal: No rectal bleeding
Musculoskeletal: No Clubbing, No Cyanosis and No Edema
Skin: No Rash
Neuro: right upper and low extremity weakness noted, no tremors, no slurred speech
Psych : no agitation
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
unknown primary
Does not do her regular mammogram or colonoscopy
Discussed with interventional radiology patient with severe ascites and liver biopsy not amenable.
Continued on steroids
Patient was on prednisone 5 mg at home but recently increased to 10 mg for SOB, keep that dose.
s/p Left Retroperitoneal LN biopsy on 09/28/23-f/u results if here otherwise as OP.
# Nausea
c/w PRN Compazine
#Acute ischemic stroke of the left postcentral gyrus. Other scattered tiny acute cortical infarcts are noted, bilaterally.
Right sided weakness.
CT & MRI studies are reviewed.
Per Neurology--Hold apixaban for a total of 7 days given stroke size, risk of hemorrhagic conversion
-Aspirin 81 mg daily
-Neurologic checks and NIH stroke scale
-Goal normotension
-Speech/ PT/OT
-Appreciate neurology input
#Leukocytosis likely 2/2 steroids
-monitor for now
# Urinary tract infection with E. coli. Pansensitive. Uncomplicated.
Negative blood cultures
complete course with 3d of rocephin
#CAD status post CABG x 2
-Continue aspirin
#Paroxysmal atrial fibrillation
-Hold Eliquis with new stroke
#Bradycardia
#Essential hypertension
Started on low-dose nifedipine with holding parameters.
#Hyperthyroidism
-Continue methimazole
-Continue prednisone
#Chronic kidney disease 3B
stop IVF
Monitor creatinine
No hematuria
No flank pain
#Chronic lower extremity edema
-Hold Lasix in setting of decrease po intake
#Anxiety
-Continue diazepam
-Continue fluoxetine
#Hyperlipidemia
-Continue statin
#Glaucoma
-Continue latanoprost
#Former smoker
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
-Monitor sodium level, she is AAOX3
Code status DNR/DNI
Prolonged discussion with patient by myself , once again patient reiterated that she did not want her family members to be contacted and stated she will inform her daughter and son in regards for diagnosis/prognosis. Today, she also stated of d/w
and talk to hospice to gather more info. She stated if in case she becomes incapacitated that her Sister Bianka to be called.
Anticipated Discharge: > 48 hours
Subjective/Interval History
-
Date of Service: September 28, 2023
states of severe anxiety
wants to go home but willing to talk to for snf
wants to talk/gather more info for hospice
states she will talk to her son/daughter
Objective Data
-
Labs:
Laboratory Results
09/28/23
06:24
WBC 27.8 H
Hgb 10.6 L
Hct 33.1 L
Plt Count 219
Sodium 131 L
Potassium 4.8
Chloride 100
Carbon Dioxide 28
BUN 39 H
Creatinine 1.3 H
Glucose 108 H
Calcium 8.4
Vital Signs:
Vital Signs
Temp Pulse Resp BP Pulse Ox
98.2 F 100 18 143/98 98
09/28/23 08:30 09/28/23 08:30 09/28/23 08:30 09/28/23 08:30 09/28/23 08:30
I&O
09/27/23 09/28/23 09/29/23
06:59 06:59 06:59
Intake Total 240 / 240 50 / 50
Output Total 275 / 275 200 / 200
Balance -35 / -35 -150 / -150
Data Reviewed
-
Total Time Spent with Patient (in minutes): 55
--- NOTE | 2023-09-28 12:01 | CM ---
Patient seen bedside with sister, Bianka. Patient and sister agreeable to meet with [facility], [place] will be meeting with patient and sister. CM made aware that patient does not want her children to know her current situation, updated to
[place]. CM offered support to patient and sister, will be available for all discharging planning needs.
Plan; meeting with Hospice, discharge needs pending Hospice eval.
--- NOTE | 2023-09-28 12:38 | HOSPNOTE ---
Addendum entered by Karin Marie RN 09/28/23 13:32:
Spoke at length with patient and sister about hospice and the philosophy. I explained all the details and the patient stated she needs to speak with her children about her prognosis and then will make a decision about hospice. She understands
hospice is needed but needs sometime. I will continue to follow daily and encourage a talk with family. I told patient to please ask for pain medications if she needs it. Will follow up again tomorrow. Updated case management and floor RN.
Original Note:
Will meet with patient and sister at 12:45. More information to follow.
--- NOTE | 2023-09-28 13:05 | W.PN.ONC ---
Today's Communication / Plan
-
Awaiting biopsy results.
may opt for hospice depending on biopsy results
Impression
Impression
78 yo f who presented to the hospital with right arm weakness, and CVA - left caudate nucleus/left internal capsule was found to have radiographic evidence concerning for metastatic malignancy, with unclear primary source.
Plan
Plan
1. Radiographic evidence concerning for widespread malignancy - of unclear etiology - CT abdomen also consistent with multiple metastasis.
IR biopsed retroperitoneal mass - Biopsy results pending.
Patient states that she is considering hospice, but does not want to discuss her diagnosis with the family yet. She wants to wait for the biopsy results before confirming her decision to go to hospice.
Ca 19-9, and CEA within normal limits.
Ca- 125 - elevated at 1050.
Will continue to follow with the patient.
Subjective/Objective
Subjective/Objective
fatigue, weakness and decreased appetite.
Vital Signs:
Vital Signs
Temp Pulse Resp BP Pulse Ox
98.2 F 100 18 143/98 96
09/28/23 08:30 09/28/23 08:30 09/28/23 08:30 09/28/23 08:30 09/28/23 08:40
Lab Results:
Laboratory Data
WBC 27.8 10^3/uL (4.8-10.8) H 09/28/23 06:24
Hgb 10.6 g/dL (12.0-16.0) L 09/28/23 06:24
Plt Count 219 10^3/uL (130-400) 09/28/23 06:24
PT 14.5 Sec (11.4-14.6) 09/27/23 07:56
INR 1.14 09/27/23 07:56
eGFR 42.09 09/28/23 06:24
[2023-09-28] MEDS: TYLENOL PO (15:55)
[2023-09-28] MEDS: DECADRON 4 MG PO (21:06)
[2023-09-28] MEDS: XALATAN OPHTHALMIC SOLUTION 1 DROP BOTH EYES (21:08)
[2023-09-28] MEDS: VALIUM 2 MG PO (21:08)
[2023-09-29 03:33] VITALS: BP 129/73
--- NOTE | 2023-09-29 04:25 | PTCARENOTE ---
Throughout night, patient refused all Q2 turns and pillows under head or legs. Patient also adamant about taking the air overlay off her bed as it is causing her too much discomfort. Reinforced importance of static air overlay as well as use of pain
medications, however patient continuing to tell RN to take it off and would not like anything for pain. Air overlay is off bed, at bedside. Patient made comfortable in bed. Plan of care ongoing
[2023-09-29 06:08] LABS: ALT (SGPT) 26 U/L (0-35); AST (SGOT) 46 U/L (14-36); Albumin 2.7 g/dl (3.5-5.0); Alkaline Phosphatase 199 U/L (38-126); Blood Urea Nitrogen 41 mg/dl (7-17); Calcium 8.5 mg/dl (8.4-10.2); Carbon Dioxide 25 mmol/L (22-30); Chloride 101 mmol/L (98-107); Estimated Creatinine Clearance 37 ml/min; Glucose 114 mg/dl (70-99); Potassium 5.1 mmol/L (3.5-5.1); Sodium 130 mmol/L (135-145); Total Bilirubin 0.3 mg/dl (0.2-1.3); eGFR 51.43
--- NOTE | 2023-09-29 07:57 | W.PN.ONC2 ---
Today's Communication / Plan
-
Await pathology from retroperitoneal biopsy which is pending.
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
Hospice would most likely be the most appropriate treatment but await pathology for patient to be able to make this decision.
Impression
Impression
78 yo f who presented to the hospital with right arm weakness, and CVA - left caudate nucleus/left internal capsule was found to have radiographic evidence concerning for metastatic malignancy, with unclear primary source.
IMP:
Widespread metastatic disease of unknown primary with innumerable pulmonary, splenic, hepatic, retroperitoneal, omental, osseous, brain metastasis
Weakness and failure to thrive
Plan
Plan
1. Radiographic evidence concerning for widespread malignancy - of unclear etiology - CT abdomen also consistent with multiple metastasis.
IR biopsed retroperitoneal mass - Biopsy results pending.
Patient states that she is considering hospice, but does not want to discuss her diagnosis with the family yet. She wants to wait for the biopsy results before confirming her decision to go to hospice.
Ca 19-9, and CEA within normal limits.
Ca- 125 - elevated at 1050.
Subjective/Objective
Chief Complaint
ACS Heme Onc
Subjective
Arousable but less communicative this morning, possibly due to the early hour (6:45 am). No apparent pain. Notes reviewed. Patient is not interested in therapy and is considering hospice. Asked that her family not be contacted. Pathology from
biopsy is still pending
Vital Signs:
Vital Signs
Temp Pulse Resp BP Pulse Ox
97.6 F 98 18 129/73 95
09/28/23 23:45 09/28/23 23:45 09/28/23 23:45 09/29/23 03:33 09/28/23 23:45
Lab Results:
Laboratory Data
WBC 27.8 10^3/uL (4.8-10.8) H 09/28/23 06:24
Hgb 10.6 g/dL (12.0-16.0) L 09/28/23 06:24
Plt Count 219 10^3/uL (130-400) 09/28/23 06:24
PT 14.5 Sec (11.4-14.6) 09/27/23 07:56
INR 1.14 09/27/23 07:56
eGFR 51.43 09/29/23 05:23
Physical Exam
Elderly female in no acute distress, frail and weak
[2023-09-29 08:23] VITALS: BP 143/75
[2023-09-29] MEDS: DUONEB 3 ML INH ×4 (09:22→20:01)
[2023-09-29] MEDS: LIDOCAINE 4% PATCH TOPICAL (09:52)
[2023-09-29] MEDS: PROCARDIA XL (EXTENDED RELEASE) 30 MG PO (09:52)
[2023-09-29] MEDS: TYLENOL 1000 MG PO (09:53)
[2023-09-29] MEDS: CRESTOR 20 MG PO (09:53)
[2023-09-29] MEDS: DECADRON 4 MG PO (09:53)
[2023-09-29] MEDS: PROZAC 20 MG PO (09:53)
[2023-09-29] MEDS: THERAGRAN 1 TABLET PO (09:53)
[2023-09-29] MEDS: LOW STRENGTH ASPIRIN 81 MG PO (09:53)
[2023-09-29] MEDS: FLUSH (NSS) 1 FLUSH IV ×2 (09:54→13:50)
[2023-09-29] MEDS: DUONEB INH (10:07)
--- NOTE | 2023-09-29 10:52 | W.PN.HOSP.TC ---
Today's Communication/Plan
-
Home VN versus SNF
Case management
Wean oxygen as tolerated
Bronchodilators
Assessment / Plan
Assessment / Plan
Physical Exam
General: No Apparent Distress
HEENT: Normocephalic, Moist mucous membranes and Atraumatic
Respiratory: Mild expiratory wheezing
Cardiac: S1/S2
GI: Soft, Non Tender, Non Distended and Normal Bowel Sounds;
Rectal: No rectal bleeding
Musculoskeletal: No Clubbing, No Cyanosis and No Edema
Skin: No Rash
Neuro: right upper and low extremity weakness noted, no tremors, no slurred speech
Psych : no agitation
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
unknown primary
Does not do her regular mammogram or colonoscopy
Discussed with interventional radiology patient with severe ascites and liver biopsy not amenable.
Continued on steroids not on hospice and does switch to Decadron 4 every 12
Patient was on prednisone 5 mg at home but recently increased to 10 mg for SOB, keep that dose.
s/p Left Retroperitoneal LN biopsy on 09/28/23-f/u results if here otherwise as OP.
# Nausea
c/w PRN Compazine
#Acute ischemic stroke of the left postcentral gyrus. Other scattered tiny acute cortical infarcts are noted, bilaterally.
Right sided weakness.
CT & MRI studies are reviewed.
Per Neurology--Hold apixaban for a total of 7 days given stroke size, risk of hemorrhagic conversion
-Aspirin 81 mg daily
-Neurologic checks and NIH stroke scale
-Goal normotension
-Speech/ PT/OT
-Appreciate neurology input
#Leukocytosis likely 2/2 steroids
-monitor for now
# Urinary tract infection with E. coli. Pansensitive. Uncomplicated.
Negative blood cultures
complete course with 3d of rocephin
#CAD status post CABG x 2
-Continue aspirin
#Paroxysmal atrial fibrillation
-Hold Eliquis with new stroke
#Bradycardia
#Essential hypertension
Started on low-dose nifedipine with holding parameters.
#Hyperthyroidism
-Continue methimazole
-Continue prednisone
#Chronic kidney disease 3B
stop IVF
Monitor creatinine
No hematuria
No flank pain
#Chronic lower extremity edema
-Hold Lasix in setting of decrease po intake
#Anxiety
-Continue diazepam
-Continue fluoxetine
#Hyperlipidemia
-Continue statin
#Glaucoma
-Continue latanoprost
#Former smoker
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
-Monitor sodium level, she is AAOX3
Code status DNR/DNI
Daily prolonged description with patient. Patient states she will talk to her son and daughter today and did not want medical team to contact family. Patient did discuss with hospice and obtain information yesterday. She stated if in case she
becomes incapacitated that her Sister Bianka to be called.
Anticipated Discharge: > 48 hours
Subjective/Interval History
-
Date of Service: September 29, 2023
This morning with anxiety
States on nebulizing treatment
States will talk to her family today
Objective Data
-
Labs:
Laboratory Results
09/29/23
05:23
Sodium 130 L
Potassium 5.1
Chloride 101
Carbon Dioxide 25
BUN 41 H
Creatinine 1.1 H
Glucose 114 H
Calcium 8.5
Total Bilirubin 0.3
AST 46 H
ALT 26
Alkaline Phosphatase 199 H
Vital Signs:
Vital Signs
Temp Pulse Resp BP Pulse Ox
97.7 F 103 20 143/75 94
09/29/23 08:23 09/29/23 09:52 09/29/23 08:23 09/29/23 09:52 09/29/23 09:44
I&O
09/28/23 09/29/23 09/30/23
06:59 06:59 06:59
Intake Total 50 / 50 480 / 480
Output Total 200 / 200
Balance -150 / -150 480 / 480
--- NOTE | 2023-09-29 12:08 | CM ---
Patient seen bedside, inquiring if respiratory will be back in to see her. TT sent to respiratory, patient to be seen 4x daily. Patient would like to speak with her family before making decision regarding Hospice. CM will continue to offer support,
will follow for discharge planning needs.
Plan; hospice, unsure of inpatient hospice vs hospice at facility.
[2023-09-29] MEDS: NSS 1000 IV (13:50)
[2023-09-29 15:05] VITALS: BP 164/71; PULSE 104; O2SAT 93
[2023-09-29 15:09] VITALS: BP 164/71; PULSE 104; O2SAT 93
[2023-09-29 16:16] VITALS: BP 158/70
--- NOTE | 2023-09-29 16:41 | PTCARENOTE ---
Pt awake and alert, oriented x3, sl forgetful; speech slurred at times. Moves Lt side and RLE randomly; RUE weak; has very slight movement to command. VSS. Pt has +2 edema of RUE/fingers; tight ring on Rt 5th finger, DR. Snow notified; [place] wrap
applied to RUE;site elevated. maintained on nc 2 lpm- pulse ox 94%, pt with (+) WISE/tachypnea; occ dry cough. Abd obese, soft, takes small amts fluids PO; refusing meal trays; stated 'I can't eat'; denies dysphagia. Pt requesting IVF's to be
started- 'It's an emergency!'. Incont urine. IV NSS @ 60 ml/hr infusing via Lt AC site without sx of infiltration. Resting in bed at present; occ refuses q 2 hr turns. Will continue to monitor.
[2023-09-29] MEDS: TYLENOL PO ×2 (17:16→22:06)
[2023-09-29] MEDS: DULCOLAX 10 MG PO (17:16)
[2023-09-29] MEDS: MIRALAX 17 GRAMS PO (17:16)
[2023-09-29] MEDS: DECADRON PO (22:05)
[2023-09-29] MEDS: VALIUM 2 MG PO (22:09)
[2023-09-29] MEDS: XALATAN OPHTHALMIC SOLUTION 1 DROP BOTH EYES (22:10)
[2023-09-29 23:53] VITALS: BP 108/77
--- NOTE | 2023-09-30 00:31 | PTCARENOTE ---
late entry 2100 patients sister and family at bs. pt and family On the phone/video call with rn resource nurse for Power of title attorney.
patient refusing decadron and tylenol, inst patient of reason for steriods, patient verb understanding but still refuses to take medication. patient states she can not sleep on the steriod, inst patient we could get something to help her sleep.
patient still refuses, only willing to take valium.
[2023-09-30] MEDS: DUONEB 3 ML INH ×5 (05:36→23:52)
[2023-09-30 05:51] VITALS: BP 160/83
[2023-09-30] MEDS: NSS 1000 IV (06:17)
[2023-09-30] MEDS: VALIUM 2 MG PO ×2 (06:20→21:38)
[2023-09-30] MEDS: DUONEB INH (07:26)
[2023-09-30 08:13] VITALS: BP 170/82
--- NOTE | 2023-09-30 09:38 | W.PN.ONC ---
Today's Communication / Plan
-
Biopsy results pending
Patient states that she is considering hospice, but does not want to discuss her diagnosis with the family yet. She wants to wait for the biopsy results before confirming her decision to go to hospice.
Ca 19-9, and CEA within normal limits.
Ca- 125 - elevated at 1050
Impression
Impression
IMP:
Widespread metastatic disease of unknown primary with innumerable pulmonary, splenic, hepatic, retroperitoneal, omental, osseous, brain metastasis
Weakness and failure to thrive
Plan
Plan
1. Radiographic evidence concerning for widespread malignancy - of unclear etiology - CT abdomen also consistent with multiple metastasis.
IR biopse
Subjective/Objective
Subjective/Objective
No new complaints. Denies pain.
Vital Signs:
Vital Signs
Temp Pulse Resp BP Pulse Ox
98.0 F 98 18 170/82 95
09/30/23 08:13 09/30/23 08:13 09/30/23 08:13 09/30/23 08:13 09/30/23 08:13
PE: Unchanged
Lab Results:
Laboratory Data
WBC 27.8 10^3/uL (4.8-10.8) H 09/28/23 06:24
Hgb 10.6 g/dL (12.0-16.0) L 09/28/23 06:24
Plt Count 219 10^3/uL (130-400) 09/28/23 06:24
PT 14.5 Sec (11.4-14.6) 09/27/23 07:56
INR 1.14 09/27/23 07:56
eGFR 51.43 09/29/23 05:23
[2023-09-30] MEDS: PROCARDIA XL (EXTENDED RELEASE) 30 MG PO (09:49)
[2023-09-30] MEDS: MIRALAX 17 GRAMS PO (09:50)
[2023-09-30] MEDS: TYLENOL 1000 MG PO ×2 (09:51→17:18)
[2023-09-30] MEDS: LOW STRENGTH ASPIRIN 81 MG PO (09:51)
[2023-09-30] MEDS: CRESTOR 20 MG PO (09:51)
[2023-09-30] MEDS: PROZAC 20 MG PO (09:51)
[2023-09-30] MEDS: LIDOCAINE 4% PATCH TOPICAL (09:51)
[2023-09-30] MEDS: THERAGRAN 1 TABLET PO (09:52)
[2023-09-30] MEDS: DECADRON 4 MG PO ×2 (09:52→20:11)
[2023-09-30] MEDS: MILK OF MAGNESIA 30 ML PO (10:24)
--- NOTE | 2023-09-30 11:28 | W.PN.HOSP.TC ---
Today's Communication/Plan
-
CM c/s for home Hospice
await placement /set up
bowel regimen
dc IVF
prognosis poor
path pending
Assessment / Plan
Assessment / Plan
Physical Exam
General: No Apparent Distress
HEENT: Normocephalic, Moist mucous membranes and Atraumatic
Respiratory: dec bs
Cardiac: S1/S2
GI: Soft, Non Tender, Non Distended and Normal Bowel Sounds;
Rectal: No rectal bleeding
Musculoskeletal: No Clubbing, No Cyanosis. Generalized anasarca
Skin: No Rash
Neuro: right upper and low extremity weakness noted, no tremors. AOX3. Slow speech.
Psych : no agitation
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
unknown primary
Does not do her regular mammogram or colonoscopy
Discussed with interventional radiology patient with severe ascites and liver biopsy not amenable.
Patient was on prednisone 5 mg at home and switched to decadron
Pt wants home [id number] CM/Hospice. await for set up. Does not want chemotherapy and or any aggressive treatment
s/p Left Retroperitoneal LN biopsy on 09/28/23-f/u results if here otherwise as OP.
remains with poor appetite-can consider switching to regular diet consistency once on hospice.
#Dysphagia
-suspected aspiration
#Constipation
-bowel regimen
# Nausea
c/w PRN Compazine
#Acute ischemic stroke of the left postcentral gyrus. Other scattered tiny acute cortical infarcts are noted, bilaterally.
Right sided weakness.
CT & MRI studies are reviewed.
Per Neurology--Hold apixaban for a total of 7 days given stroke size, risk of hemorrhagic conversion
-Aspirin 81 mg daily
-Neurologic checks and NIH stroke scale
-Goal normotension
-Speech/ PT/OT
-Appreciate neurology input
#Leukocytosis likely 2/2 steroids
-monitor for now
# Urinary tract infection with E. coli. Pansensitive. Uncomplicated.
Negative blood cultures
complete course with 3d of rocephin
#CAD status post CABG x 2
-Continue aspirin
#Paroxysmal atrial fibrillation
-Hold Eliquis with new stroke
#Bradycardia
#Essential hypertension
Started on low-dose nifedipine with holding parameters.
#Hyperthyroidism
-Continue methimazole
-Continue prednisone
#Chronic kidney disease 3B
stop IVF
Monitor creatinine
No hematuria
No flank pain
#Chronic lower extremity edema
-Hold Lasix in setting of decrease po intake
#Anxiety
-Continue diazepam
-Continue fluoxetine
#Hyperlipidemia
-Continue statin
#Glaucoma
-Continue latanoprost
#Former smoker
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
-Monitor sodium level, she is AAOX3
Code status DNR/DNI
Daily prolonged description with patient who now wants to move forward with home hospice.
Anticipated Discharge: Within 24 hours
Subjective/Interval History
-
Date of Service: September 30, 2023
Pt states she had meeting last night and now wants to go home on hospice
Objective Data
-
Vital Signs:
Vital Signs
Temp Pulse Resp BP Pulse Ox
98.0 F 68 18 170/82 95
09/30/23 08:13 09/30/23 09:49 09/30/23 08:13 09/30/23 09:49 09/30/23 08:13
I&O
09/29/23 09/30/23 10/01/23
06:59 06:59 06:59
Intake Total 480 / 480 1380 / 1380
Balance 480 / 480 1380 / 1380
Data Reviewed
-
Total Time Spent with Patient (in minutes): 55
--- NOTE | 2023-09-30 11:37 | PTOTSP ---
ST Follow-Up
Pt currently displays moderate oropharyngeal dysphagia 2/2 reduced endurance, edentulous oral cavity, increased work of breathing, generalized weakness, and reduced breathing/swallowing coordination. HAND TWISTER discussed with pt the benefits of consuming
more liquids and pureed consistencies - pt was agreeable to downgrade in diet for easy of swallowing and energy conservation purposes. Discussed traditional recommendation for VFSS given pt's persistent difficulty initiating swallows, however,
advised pt that this is no longer deemed necessary given pt's POC to pursue hospice. Pt verbalized understanding.
Recommendations:
- DOWNGRADE to pureed solids, thin liquids via open cup, and meds crushed in puree.
- ASPIRATION PRECAUTIONS: HOB upright for all PO intake, provide small bites/sips, alternate bites/sips, feed slowly - wait for swallow.
- Given plan for hospice, VFSS not indicated at this time.
- HAND TWISTER will continue to follow.
--- NOTE | 2023-09-30 12:12 | CM ---
Patient seen bedside. Per Hospitalist, patient would like home hospice. CM sent TT to hospice nurse liaison Karin Marie. CM will continue to follow for discharge planning needs.
Plan; home with hospice, pending acceptance.
--- NOTE | 2023-09-30 13:27 | HOSPNOTE ---
Spoke with sister who is on her way to the hospital. The patient wishes for hospice however placement is needed. The family is unable to care for patient at home. Once patient has placement hospice will admit onto our services.
[2023-09-30 15:34] VITALS: BP 145/74
--- NOTE | 2023-09-30 16:27 | CM ---
Patient seen bedside with sister, discussed plan for LTC with hospice. Patient reports she does not have financial means to pay for facility and will need to complete a financial application, CM will send referrals in [facility]. CM will continue to
follow for discharge planning needs.
Plan; SNF with hospice, pending accepting facility.
[2023-09-30] MEDS: TYLENOL 500 MG PO (21:37)
[2023-09-30] MEDS: XALATAN OPHTHALMIC SOLUTION 1 DROP BOTH EYES (21:39)
[2023-09-30 23:45] VITALS: BP 156/86
[2023-10-01] MEDS: ROBITUSSIN DM 10 ML PO ×3 (00:20→22:27)
[2023-10-01] MEDS: ROXICODONE 5 MG PO (00:27)
[2023-10-01] MEDS: DUONEB 3 ML INH ×5 (08:11→23:37)
[2023-10-01] MEDS: TYLENOL 1000 MG PO ×3 (08:30→22:27)
[2023-10-01] MEDS: LIDOCAINE 4% PATCH TOPICAL (08:31)
[2023-10-01] MEDS: PROZAC 20 MG PO (08:31)
[2023-10-01] MEDS: DECADRON 4 MG PO ×2 (08:31→20:33)
[2023-10-01] MEDS: PROCARDIA XL (EXTENDED RELEASE) 30 MG PO (08:31)
[2023-10-01] MEDS: CRESTOR 20 MG PO (08:31)
[2023-10-01] MEDS: THERAGRAN 1 TABLET PO (08:32)
[2023-10-01] MEDS: MIRALAX PO (08:32)
[2023-10-01] MEDS: LOW STRENGTH ASPIRIN 81 MG PO (08:32)
[2023-10-01 08:44] VITALS: BP 149/75
--- NOTE | 2023-10-01 12:00 | W.PN.HOSP.TC ---
Today's Communication/Plan
-
Await placement to SNF for hospice
Prognosis guarded
Assessment / Plan
Assessment / Plan
Physical Exam
General: No Apparent Distress
HEENT: Normocephalic, Moist mucous membranes and Atraumatic
Respiratory: dec bs
Cardiac: S1/S2
GI: Soft, Non Tender, Non Distended and Normal Bowel Sounds;
Rectal: No rectal bleeding
Musculoskeletal: No Clubbing, No Cyanosis. Generalized anasarca
Skin: No Rash
Neuro: right upper and low extremity weakness noted, no tremors. AOX3. Slow speech.
Psych : no agitation
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
unknown primary
Does not do her regular mammogram or colonoscopy
Discussed with interventional radiology patient with severe ascites and liver biopsy not amenable.
Patient was on prednisone 5 mg at home and switched to decadron
Pt wants home [id number] CM/Hospice. await for set up. Does not want chemotherapy and or any aggressive treatment. Per patient no enough help at home and pt now agreeable for SNF w/hospice
s/p Left Retroperitoneal LN biopsy on 09/28/23-f/u results if here otherwise as OP.
encourage to increase po intake.
#Dysphagia
-suspected aspiration
#Constipation
-bowel regimen
# Nausea
c/w PRN Compazine
#Acute ischemic stroke of the left postcentral gyrus. Other scattered tiny acute cortical infarcts are noted, bilaterally.
Right sided weakness.
CT & MRI studies are reviewed.
Per Neurology--Hold apixaban for a total of 7 days given stroke size, risk of hemorrhagic conversion
-Aspirin 81 mg daily
-Neurologic checks and NIH stroke scale
-Goal normotension
-Speech/ PT/OT
-Appreciate neurology input
#Leukocytosis likely 2/2 steroids
-monitor for now
# Urinary tract infection with E. coli. Pansensitive. Uncomplicated.
Negative blood cultures
complete course with 3d of rocephin
#CAD status post CABG x 2
-Continue aspirin
#Paroxysmal atrial fibrillation
-Hold Eliquis with new stroke
#Bradycardia
#Essential hypertension
Started on low-dose nifedipine with holding parameters.
#Hyperthyroidism
-Continue methimazole
-Continue prednisone
#Chronic kidney disease 3B
stop IVF
Monitor creatinine
No hematuria
No flank pain
#Chronic lower extremity edema
-Hold Lasix in setting of decrease po intake
#Anxiety
-Continue diazepam
-Continue fluoxetine
#Hyperlipidemia
-Continue statin
#Glaucoma
-Continue latanoprost
#Former smoker
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
-Monitor sodium level, she is AAOX3
Code status DNR/DNI
Daily prolonged description with patient who now wants to move forward with hospice. Plan for placement to SNF with signing onto hospice. Patient stated she will talk to her son and daughter tomorrow. Still did not want to call her family.
Anticipated Discharge: Within 24 hours
Subjective/Interval History
-
Date of Service: October 01, 2023
wants to try thickened liquid.
states will talk to her son and daughter tomm
Objective Data
-
Vital Signs:
Vital Signs
Temp Pulse Resp BP Pulse Ox
97.9 F 94 20 149/75 96
10/01/23 08:44 10/01/23 11:42 10/01/23 11:42 10/01/23 08:44 10/01/23 08:44
I&O
09/30/23 10/01/23 10/02/23
06:59 06:59 06:59
Intake Total 1380 / 1380 180 / 180
Balance 1380 / 1380 180 / 180
--- NOTE | 2023-10-01 15:43 | CM ---
CM spoke with patients sister, discussed [place] and Jeovanny Laws would like to see financial application completed prior to acceptance. CM left [facility] [facility] application in patients room as sister was no longer present. Per Jeovanny Laws, patients sister
can pick up and delivery driver application at credit [employer]. CM awaiting to hear from [facility]. CM will continue to follow for discharge planning needs.
Plan; SNF with hospice, will need financial application completed, pending accepting facility.
[2023-10-01 15:50] VITALS: BP 94/60
--- NOTE | 2023-10-01 16:13 | W.PN.ONC ---
Today's Communication / Plan
-
met with patient and sister, discuss biopsy results showing lung cancer, stage IV
hospice is most appropriate, and already being planned
patient/sister request anxiolytics; Valium is prn.
Will sign off.
Impression
Impression
IMP:
Widespread metastatic LUNG CANCER with innumerable pulmonary, splenic, hepatic, retroperitoneal, omental, osseous, brain metastasis
Weakness and failure to thrive
Plan
Plan
hospice
Subjective/Objective
Subjective/Objective
Vital Signs:
Vital Signs
Temp Pulse Resp BP Pulse Ox
98 F 93 20 94/60 94
10/01/23 15:50 10/01/23 15:50 10/01/23 15:50 10/01/23 15:50 10/01/23 15:50
Lab Results:
Laboratory Data
WBC 27.8 10^3/uL (4.8-10.8) H 09/28/23 06:24
Hgb 10.6 g/dL (12.0-16.0) L 09/28/23 06:24
Plt Count 219 10^3/uL (130-400) 09/28/23 06:24
PT 14.5 Sec (11.4-14.6) 09/27/23 07:56
INR 1.14 09/27/23 07:56
eGFR 51.43 09/29/23 05:23
[2023-10-01] MEDS: VALIUM 2 MG PO (22:27)
[2023-10-01] MEDS: XALATAN OPHTHALMIC SOLUTION 1 DROP BOTH EYES (22:28)
[2023-10-01] MEDS: DUONEB INH (23:28)
[2023-10-01 23:44] VITALS: BP 133/69
[2023-10-02] MEDS: ROXICODONE 5 MG PO ×2 (03:12→09:54)
[2023-10-02] MEDS: DUONEB 3 ML INH (03:31)
[2023-10-02 07:45] VITALS: BP 160/71
[2023-10-02] MEDS: DUONEB INH ×5 (07:55→19:59)
[2023-10-02] MEDS: TYLENOL 1000 MG PO ×2 (09:49→22:18)
[2023-10-02] MEDS: PROZAC 20 MG PO (09:49)
[2023-10-02] MEDS: PROCARDIA XL (EXTENDED RELEASE) 30 MG PO (09:49)
[2023-10-02] MEDS: LOW STRENGTH ASPIRIN 81 MG PO (09:49)
[2023-10-02] MEDS: MIRALAX PO (09:50)
[2023-10-02] MEDS: THERAGRAN 1 TABLET PO (09:50)
[2023-10-02] MEDS: CRESTOR 20 MG PO (09:50)
[2023-10-02] MEDS: DECADRON 4 MG PO ×2 (09:56→20:39)
[2023-10-02] MEDS: LIDOCAINE 4% PATCH TOPICAL (09:57)
--- NOTE | 2023-10-02 10:00 | PTCARENOTE ---
Pt has requested to not be awoken if sleeping. MD made aware. Per MD order this patient was placed on linen attendant.
--- NOTE | 2023-10-02 11:18 | W.PN.HOSP.TC ---
Today's Communication/Plan
-
Adjust Valium dose
Pain control
Await placement
Assessment / Plan
Assessment / Plan
Physical Exam
General: No Apparent Distress
HEENT: Normocephalic, Moist mucous membranes and Atraumatic
Respiratory: dec bs
Cardiac: S1/S2
GI: Soft, Non Tender, Non Distended and Normal Bowel Sounds;
Rectal: No rectal bleeding
Musculoskeletal: No Clubbing, No Cyanosis. Generalized anasarca
Skin: No Rash
Neuro: right upper and low extremity weakness noted, no tremors. AOX3. Slow speech.
Psych : no agitation
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
unknown primary
Does not do her regular mammogram or colonoscopy
Discussed with interventional radiology patient with severe ascites and liver biopsy not amenable.
Patient was on prednisone 5 mg at home and switched to decadron
Pt wants home [id number]/Hospice. Does not want chemotherapy and or any aggressive treatment. Per hospice discussion with sister no enough help at home and pt now agreeable for SNF w/hospice
s/p Left Retroperitoneal LN biopsy on 09/28/23-pathology results with metastatic adenocarcinoma favoring lung primary origin
Continue oxycodone and Valium as needed for pain and anxiety
encourage to increase po intake.
#Dysphagia
-suspected aspiration
#Constipation
-bowel regimen
# Nausea
c/w PRN Compazine
#Acute ischemic stroke of the left postcentral gyrus. Other scattered tiny acute cortical infarcts are noted, bilaterally.
Right sided weakness.
CT & MRI studies are reviewed.
Per Neurology--Hold apixaban for a total of 7 days given stroke size, risk of hemorrhagic conversion
-Aspirin 81 mg daily
-Neurologic checks and NIH stroke scale
-Goal normotension
-Speech/ PT/OT
-Appreciate neurology input
#Leukocytosis likely 2/2 steroids
-monitor for now
# Urinary tract infection with E. coli. Pansensitive. Uncomplicated.
Negative blood cultures
complete course with 3d of rocephin
#CAD status post CABG x 2
-Continue aspirin
#Paroxysmal atrial fibrillation
-Eliquis plan as above
#Bradycardia
#Essential hypertension
Started on low-dose nifedipine with holding parameters.
#Hyperthyroidism
-Continue methimazole
#Chronic kidney disease 3B
stop IVF
Monitor creatinine
No hematuria
No flank pain
#Chronic lower extremity edema
-Hold Lasix in setting of decrease po intake
#Anxiety
-Continue diazepam
-Continue fluoxetine
#Hyperlipidemia
-Continue statin
#Glaucoma
-Continue latanoprost
#Former smoker
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
-Monitor sodium level, she is AAOX3
Code status DNR/DNI
Daily prolonged description with patient who now wants to move forward with hospice. Plan for placement to SNF with signing onto hospice. Patient stated she will talk to her son and daughter tomorrow. Still did not want myself to call her
family.
Anticipated Discharge: > 48 hours
Subjective/Interval History
-
Date of Service: October 02, 2023
States he did not sleep much last night and wanted to increase dose of Valium for anxiety too
eager to get dc to rehab
Objective Data
-
Vital Signs:
Vital Signs
Temp Pulse Resp BP Pulse Ox
98.1 F 91 16 160/71 97
10/02/23 07:45 10/02/23 11:12 10/02/23 11:12 10/02/23 09:49 10/02/23 11:12
I&O
10/01/23 10/02/23 10/03/23
06:59 06:59 06:59
Intake Total 180 / 180 600 / 600
Balance 180 / 180 600 / 600
Data Reviewed
-
Total Time Spent with Patient (in minutes): 55
[2023-10-02 11:45] VITALS: BP 134/66
[2023-10-02] MEDS: DILAUDID 0.25 MG IV (14:23)
[2023-10-02] MEDS: TYLENOL PO (16:59)
--- NOTE | 2023-10-02 17:18 | CM ---
i spoke with jenna from [facility] and she is not able to take patient on hospice without a financial statement.i called sister homero who returned my call.she and sister heidi from [facility] are acting as patient financial poa and this has been
accepted by patient's bank.she states patient has $8000 in checking account.homero and heidi willbe filling out financial applicstions but this will not happen until wednesday.heidi is driving from [employer].Plan is still dc to snf on hospice.
[2023-10-02 19:23] VITALS: BP 156/76
[2023-10-02] MEDS: XALATAN OPHTHALMIC SOLUTION 1 DROP BOTH EYES (20:39)
[2023-10-02] MEDS: VALIUM 5 MG PO (20:45)
[2023-10-02 23:25] VITALS: BP 144/74
--- NOTE | 2023-10-03 06:38 | PTCARENOTE ---
Pt aaox3 able to make her needs known. Pt doesn't want to be woken up, refusing q2 turns, refuses nursing care at times. Refusing for pillows to elevate her right arm or legs.Pt call louis in reach. Plan of care continued as ordered.
[2023-10-03] MEDS: DUONEB 3 ML INH (06:57)
[2023-10-03 07:06] VITALS: BP 158/74
[2023-10-03] MEDS: TYLENOL 1000 MG PO ×3 (08:55→21:40)
[2023-10-03] MEDS: LOW STRENGTH ASPIRIN 81 MG PO (08:55)
[2023-10-03] MEDS: DECADRON 4 MG PO ×2 (08:55→21:39)
[2023-10-03] MEDS: PROZAC 20 MG PO (08:55)
[2023-10-03] MEDS: CRESTOR 20 MG PO (08:55)
[2023-10-03] MEDS: THERAGRAN 1 TABLET PO (08:55)
[2023-10-03] MEDS: LIDOCAINE 4% PATCH TOPICAL (08:56)
[2023-10-03] MEDS: MIRALAX 17 GRAMS PO (09:00)
[2023-10-03] MEDS: PROCARDIA XL (EXTENDED RELEASE) PO ×2 (09:00→09:14)
[2023-10-03 11:40] VITALS: BP 158/71
--- NOTE | 2023-10-03 12:01 | W.PN.HOSP.TC ---
Today's Communication/Plan
-
await placement to SNF
Lopressor
Assessment / Plan
Assessment / Plan
Physical Exam
General: No Apparent Distress
HEENT: Normocephalic, Moist mucous membranes and Atraumatic
Respiratory: dec bs
Cardiac: S1/S2
GI: Soft, Non Tender, Non Distended and Normal Bowel Sounds;
Rectal: No rectal bleeding
Musculoskeletal: No Clubbing, No Cyanosis. Generalized anasarca
Skin: No Rash
Neuro: right upper and low extremity weakness noted, no tremors. AOX3. Slow speech.
Psych : no agitation
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
unknown primary
Does not do her regular mammogram or colonoscopy
Discussed with interventional radiology patient with severe ascites and liver biopsy not amenable.
Patient was on prednisone 5 mg at home and switched to decadron
Pt wants home [id number]/Hospice. Does not want chemotherapy and or any aggressive treatment. Per hospice discussion with sister no enough help at home and pt now agreeable for SNF w/hospice
s/p Left Retroperitoneal LN biopsy on 09/28/23-pathology results with metastatic adenocarcinoma favoring lung primary origin
Continue oxycodone and Valium as needed for pain and anxiety
encourage to increase po intake.
#Dysphagia
-suspected aspiration
#Constipation
-bowel regimen
# Nausea
c/w PRN Compazine
#Acute ischemic stroke of the left postcentral gyrus. Other scattered tiny acute cortical infarcts are noted, bilaterally.
Right sided weakness.
CT & MRI studies are reviewed.
Per Neurology--Hold apixaban for a total of 7 days given stroke size, risk of hemorrhagic conversion.
-Aspirin 81 mg daily for now. As planning for hospice can probably stop on dc to hospice.
-Neurologic checks and NIH stroke scale
-Goal normotension
-Appreciate neurology input
#Leukocytosis likely 2/2 steroids
-monitor for now
# Urinary tract infection with E. coli. Pansensitive. Uncomplicated.
Negative blood cultures
complete course with 3d of rocephin
#CAD status post CABG x 2
-Continue aspirin
#Paroxysmal atrial fibrillation
-Eliquis plan as above
#Bradycardia
#Essential hypertension
-stop nifedipine as unable to be crushed. started lopressor.
#Hyperthyroidism
-Continue methimazole
#Chronic kidney disease 3B
stop IVF
Monitor creatinine
No hematuria
No flank pain
#Chronic lower extremity edema
-Hold Lasix in setting of decrease po intake
#Anxiety
-Continue diazepam
-Continue fluoxetine
#Hyperlipidemia
-Continue statin
#Glaucoma
-Continue latanoprost
#Former smoker
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
-Monitor sodium level, she is AAOX3
Code status DNR/DNI
Daily prolonged description with patient who now wants to move forward with hospice. Plan for placement to SNF with signing onto hospice. Patient stated she will talk to her son and daughter. Sisters are POA. Still did not want myself to call
her family. Sisters are working on finance application. Meghan Eller interested in patient.
Anticipated Discharge: > 48 hours
Subjective/Interval History
-
Date of Service: October 03, 2023
States valium helps with sleep
Objective Data
-
Vital Signs:
Vital Signs
Temp Pulse Resp BP Pulse Ox
97.3 F 92 18 158/71 95
10/03/23 11:40 10/03/23 11:40 10/03/23 11:40 10/03/23 11:40 10/03/23 11:40
I&O
10/02/23 10/03/23 10/04/23
06:59 06:59 06:59
Intake Total 600 / 600 820 / 820
Balance 600 / 600 820 / 820
[2023-10-03] MEDS: LOPRESSOR 12.5 MG PO ×2 (12:58→21:41)
[2023-10-03] MEDS: VALIUM 5 MG PO (13:07)
[2023-10-03] MEDS: ROXICODONE 5 MG PO (14:48)
[2023-10-03 15:59] VITALS: BP 164/82
[2023-10-03] MEDS: DILAUDID 0.25 MG IV (18:04)
--- NOTE | 2023-10-03 18:24 | PTCARENOTE ---
during this shift pt has refused turns, use of pillows to facilitate skin integrity, static air overlay, heel foams and offers and options presented to facilitate skin integrity. pt informed of possibility of developing skin integrity issues.
despite education, reassurance and ongoing efforts, pt not interested in interventions offered throughout the day. no new skin integrity issues noted during this shift. family at bedside throughout the day made aware of pts requests/refusal;
responding by stating that this behavior is typical of the pt.
[2023-10-03 19:39] VITALS: BP 146/73
[2023-10-03] MEDS: XALATAN OPHTHALMIC SOLUTION 1 DROP BOTH EYES (21:40)
[2023-10-03 23:32] VITALS: BP 157/80
[2023-10-04] MEDS: DILAUDID 0.25 MG IV ×2 (01:41→06:23)
--- NOTE | 2023-10-04 07:43 | PTCARENOTE ---
Pt aaox3 anxious at times, pt refuses [id number].Doesn't want to be changed, refuses nursing care. PRN pain meds given as needed.All comfort measures continued as needed.Plan of care continued. Call louis in reach.
[2023-10-04 08:12] VITALS: BP 145/92
[2023-10-04] MEDS: TYLENOL 1000 MG PO (08:29)
[2023-10-04] MEDS: CRESTOR 20 MG PO (08:30)
[2023-10-04] MEDS: PROZAC 20 MG PO (08:30)
[2023-10-04] MEDS: DECADRON 4 MG PO (08:30)
[2023-10-04] MEDS: LOPRESSOR 12.5 MG PO (08:30)
[2023-10-04] MEDS: THERAGRAN 1 TABLET PO (08:30)
[2023-10-04] MEDS: LOW STRENGTH ASPIRIN 81 MG PO (08:31)
[2023-10-04] MEDS: LIDOCAINE 4% PATCH TOPICAL (08:39)
[2023-10-04] MEDS: MIRALAX PO (08:40)
--- NOTE | 2023-10-04 11:16 | W.PN.HOSP.TC ---
Today's Communication/Plan
-
dc to inpatient hospice
Assessment / Plan
Assessment / Plan
Physical Exam
General: No Apparent Distress
HEENT: Normocephalic, Moist mucous membranes and Atraumatic
Respiratory: dec bs
Cardiac: S1/S2
GI: Soft, Non Tender, Non Distended and Normal Bowel Sounds;
Rectal: No rectal bleeding
Musculoskeletal: No Clubbing, No Cyanosis. Generalized anasarca
Skin: No Rash
Neuro: right upper and low extremity weakness noted, no tremors. AOX3. Slow speech.
Psych : no agitation
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
Does not do her regular mammogram or colonoscopy
Discussed with interventional radiology patient with severe ascites and liver biopsy not amenable.
Patient was on prednisone 5 mg at home and switched to Decadron
Pt wants home [id number]-Hq-[id number] [facility]/Hospice. Does not want chemotherapy and or any aggressive treatment. Per hospice discussion with sister no enough help at home and pt now agreeable w/hospice
s/p Left Retroperitoneal LN biopsy on 09/28/23-pathology results with metastatic adenocarcinoma favoring lung primary origin
# Acute cancer pain. Patient complains of bony aches mostly in her back and joints.
She wants pain medicine [id number] with diazepam for anxiety
Discussed with the patient and pharmacist. Will start the patient on around the schedule short acting opioid and as needed.
Discussed with hospice nurse. Patient is appropriate for inpatient
encourage to increase po intake.
#Dysphagia
-suspected aspiration
#Constipation
-bowel regimen
# Nausea
c/w PRN Compazine
#Acute ischemic stroke of the left postcentral gyrus. Other scattered tiny acute cortical infarcts are noted, bilaterally.
Right sided weakness.
CT & MRI studies are reviewed.
Per Neurology--Hold apixaban for a total of 7 days given stroke size, risk of hemorrhagic conversion.
-Aspirin 81 mg daily for now. As planning for hospice can probably stop on dc to hospice.
-Neurologic checks and NIH stroke scale
-Goal normotension
-Appreciate neurology input
#Leukocytosis likely 2/2 steroids
-monitor for now
# Urinary tract infection with E. coli. Pansensitive. Uncomplicated.
Negative blood cultures
complete course with 3d of Rocephin
#CAD status post CABG x 2
-Continue aspirin
#Paroxysmal atrial fibrillation
Stop Eliquis for hospice admission
#Bradycardia
#Essential hypertension
-stop nifedipine as unable to be crushed. started lopressor.
#Hyperthyroidism
-Continue methimazole
#Chronic kidney disease 3B
stopped IVF
Monitor creatinine
No hematuria
No flank pain
#Chronic lower extremity edema
-Hold Lasix in setting of decrease po intake
#Anxiety
-Continue diazepam
-Continue fluoxetine
#Hyperlipidemia
-Continue statin
#Glaucoma
-Continue latanoprost
#Former smoker
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
-Monitor sodium level, she is AAOX3
Code status DNR/DNI
Total discharge time spent to see the patient, examine the patient, review data and lab results, discuss discharge plan with patient, protective services case worker, hospice nurse, nursing staff around 65 minutes
Anticipated Discharge: Today
Subjective/Interval History
-
Date of Service: October 04, 2023
Objective Data
-
Vital Signs:
Vital Signs
Temp Pulse Resp BP Pulse Ox
97.4 F 83 20 145/92 94
10/04/23 08:12 10/04/23 08:30 10/04/23 08:12 10/04/23 08:30 10/04/23 08:12
I&O
10/03/23 10/04/23 10/05/23
06:59 06:59 06:59
Intake Total 820 / 820 700 / 700
Balance 820 / 820 700 / 700
--- NOTE | 2023-10-04 11:26 | CM ---
Addendum entered by Mely Gimenez 10/04/23 12:14:
CM met with patients sister with Hospice nurse, patient will be admitted for inpatient Hospice and moved to second floor.
Original Note:
Patient seen bedside with two sisters, patient and family inquiring if patient meets inpatient hospice. TT sent to [facility] with Hospice. CM will update patient and family once determination is made regarding qualifying for inpatient hospice. CM
will continue to follow for all discharge planning needs.
Plan; SNF with hospice vs inpatient hospice.
[2023-10-04 11:35] VITALS: BP 159/80
[2023-10-04] MEDS: NORCO 5/325 1 TABLET PO (11:36)
[2023-10-04] MEDS: SENOKOT-S 2 TABLET PO (11:36)
--- NOTE | 2023-10-04 12:03 | HOSPNOTE ---
Spoke with sisters and discussed hospice and the philosophy and we are all in agreement with Attending for patient to remain inpatient hospice. Admissions was called and case management updated. Patient will be moving to [id number].
--- NOTE | 2023-10-04 13:01 | W.DCSUMMARY ---
Discharge Summary
Discharge Data
Date of Admission: 09/23/23
Date of Discharge: 10/04/23
-
Pending Results: No
Hospital Course
78-year-old female who presented with worsening shortness of breath lethargy and bodyaches for several days/weeks duration. Patient was noticed to be poor historian and she was not following with her primary care doctor. Patient was noted to have
hypoxia on admission. imaging studies including scans of chest, abdomen pelvis, magnetic resonant imaging of the brain were consistent with stage IV metastatic disease. Patient was followed by oncologist. Interventional radiologist did scan
guided retroperitoneal biopsy that was consistent with adenocarcinoma of pulmonary origin. Patient had history of tobacco use. Patient was diagnosed with widespread metastatic LUNG CANCER with innumerable pulmonary, splenic, hepatic,
retroperitoneal, omental, osseous. Scan of the brain showed acute ischemic stroke of the left postcentral gyrus, other scattered tiny acute cortical infarcts bilaterally. Patient had right sided hemiplegia. Patient was noted to have simple
uncomplicated urinary tract infection was given antibiotic. Patient was lucid and fully oriented. Patient wanted initially to keep the diagnosis of cancer confidential without letting her family know but later agreed to let her sister (Bianka) be
involved in decision-making process. Patient had history of coronary artery disease and paroxysmal atrial fibrillation. Patient was given dexamethasone treatment. Patient continued to struggle with uncontrollable cancer pain and weakness. Patient
was very clear in expressing her wishes to remain DO NOT RESUSCITATE/DO NOT INTUBATE and not pursue aggressive cancer treatment, and also to pursue comfort care/hospice. Oncology doctor met with the patient and her sister, discussed biopsy result.
Hospice was most appropriate. Patient and sister requested anxiety and pain control. Hospice nurse evaluated the patient and recommended inpatient hospice care.
Discharge Plan
-
Patient Disposition: Hospice - Inpatient [facility]
Referrals:
Dave Tracey MD [Family Provider] -
Prescriptions:
No Action
latanoprost 0.005 % Drops
1 drp BOTH EYES HS
potassium chloride 10 mEq Tablet Extended Release
10 meq PO BID
prednisone 5 mg tablet
10 mg PO DAILY
Eliquis 5 MG tablet
5 mg PO BID
fluoxetine 20 MG capsule
20 mg PO DAILY Qty: 30 0RF
rosuvastatin 20 MG tablet
20 mg PO DAILY Qty: 30 0RF
multivitamin with folic acid [Tab-A-Muna] 1 TABLET tablet
1 tab PO DAILY Qty: 30 0RF
Discharge Orders:
Discharge Patient (As Directed); Ordered 10/04/23
Ordered By: Tete Whitney
Discharge Date and Time
Print Language: THAI
== END 2023-10-04 13:26 | disposition hospice, inpatient (51) | DRG 54 ==
LOC: 4 EAST ACU 17:55
PROVIDERS: Hospitalist; Nurse Practitioner; Radiology Vascular & Interventional Radiology; ADMITTING PHYSICIAN Hospitalist; ATTENDING PHYSICIAN Internal Medicine; CONSULT PHYSICIAN Student in an Organized Health Care Education/Training Program; EMERGENCY PHYSICIAN Emergency Medicine; FAMILY PHYSICIAN Internal Medicine; OTHER PHYSICIAN Internal Medicine Critical Care Medicine; OTHER PHYSICIAN Internal Medicine Hematology & Oncology
PROC: 0WBH3ZX Excision of Retroperitoneum, Percutaneous Approach, Diagnostic (ICD-10-PCS; 2023-09-27)
DX: C79.31 Secondary malignant neoplasm of brain (principal); G93.6 Cerebral edema; I63.9 Cerebral infarction, unspecified; N39.0 Urinary tract infection, site not specified; I69.351 Hemiplegia and hemiparesis following cerebral infarction affecting right dominant side; E22.2 Syndrome of inappropriate secretion of antidiuretic hormone; M84.48XA Pathological fracture, other site, initial encounter for fracture; C79.51 Secondary malignant neoplasm of bone; J98.11 Atelectasis; R18.8 Other ascites; C34.90 Malignant neoplasm of unspecified part of unspecified bronchus or lung; C78.6 Secondary malignant neoplasm of retroperitoneum and peritoneum; C78.7 Secondary malignant neoplasm of liver and intrahepatic bile duct; C78.89 Secondary malignant neoplasm of other digestive organs; Z51.5 Encounter for palliative care; I12.9 Hypertensive chronic kidney disease with stage 1 through stage 4 chronic kidney disease, or unspecified chronic kidney disease; N18.32 Chronic kidney disease, stage 3b; F41.9 Anxiety disorder, unspecified; R00.1 Bradycardia, unspecified; F17.200 Nicotine dependence, unspecified, uncomplicated; G25.81 Restless legs syndrome; B96.20 Unspecified Escherichia coli [E. coli] as the cause of diseases classified elsewhere; H26.9 Unspecified cataract; E78.00 Pure hypercholesterolemia, unspecified; H40.9 Unspecified glaucoma; E05.90 Thyrotoxicosis, unspecified without thyrotoxic crisis or storm; I25.10 Atherosclerotic heart disease of native coronary artery without angina pectoris; R62.7 Adult failure to thrive; R13.10 Dysphagia, unspecified; K59.00 Constipation, unspecified; E87.8 Other disorders of electrolyte and fluid balance, not elsewhere classified; R09.02 Hypoxemia; G89.3 Neoplasm related pain (acute) (chronic); I48.0 Paroxysmal atrial fibrillation; Z66 Do not resuscitate; Z95.1 Presence of aortocoronary bypass graft; Z11.52 Encounter for screening for COVID-19; Z79.52 Long term (current) use of systemic steroids; Z79.82 Long term (current) use of aspirin; Z79.01 Long term (current) use of anticoagulants; Z82.5 Family history of asthma and other chronic lower respiratory diseases; Z68.30 Body mass index [BMI] 30.0-30.9, adult; Z75.1 Person awaiting admission to adequate facility elsewhere
CPT/HCPCS: 88305; 49180; 70450; 70548; 70553; 71046; 71260; 72156; 74177; 77012; 80048; 80053; 80061; 81003; 81015; 82248; 82378; 83036; 83605; 85025; 85027; 85610; 86301; 86304; 87040; 87077; 87086; 87186; 87502; 87811; 88333; 88341; 88342; 88360; 92526; 92610; 93005; 94640; 96374; 96375; 97110; 97530; 97535; 99152; 99285; A9585; Q9967

== ENCOUNTER 2023-10-04 13:32 | Inpatient (IN) | payer OTHER, SELFPAY ==
[2023-10-04 14:57] VITALS: BP 174/78
[2023-10-04] MEDS: DILAUDID 0.5 MG IV ×2 (15:06→20:34)
--- NOTE | 2023-10-04 15:46 | CM ---
Reviewed the chart notes. The patient is now on [facility] Hopsice. CM continues to be available to patient/family and is monitoring medical plan for needs at discharge.
Plan: [facility].
[2023-10-04] MEDS: DILAUDID IV (16:44)
[2023-10-04] MEDS: NSS (PRESERVATIVE FREE) 0.5 ML IV (20:34)
[2023-10-04] MEDS: ATIVAN 1 MG IV (20:35)
--- NOTE | 2023-10-04 23:26 | HOSPNOTE ---
Patient was admitted into Hospice services. She will need to remain GIP at this time ,pain and dyspnea cannot be managed outside of the hospital setting.
[2023-10-04 23:38] VITALS: BP 123/88
[2023-10-05] MEDS: DILAUDID 0.5 MG IV ×8 (00:15→18:37)
[2023-10-05] MEDS: ATIVAN 1 MG IV ×2 (08:05→10:21)
[2023-10-05] MEDS: DILAUDID IV (08:05)
[2023-10-05] MEDS: NSS (PRESERVATIVE FREE) 0.5 ML IV ×2 (08:06→10:21)
[2023-10-05 08:48] VITALS: BP 148/72
--- NOTE | 2023-10-05 09:51 | W.PN.HSP.1 ---
Assessment / Plan
-
Physical Exam
General: No Apparent Distress
HEENT: Normocephalic, Moist mucous membranes and Atraumatic
Respiratory: dec bs
Cardiac: S1/S2
GI: Soft, Non Tender, Non Distended and Normal Bowel Sounds;
Rectal: No rectal bleeding
Musculoskeletal: No Clubbing, No Cyanosis. Generalized anasarca
Skin: No Rash
Neuro: right upper and low extremity weakness noted, no tremors. AOX3. Slow speech.
Psych : no agitation
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
c/w comfort measures
She seems to feel better with IV Dilaudid, controlling her SOB and bone pain. Will d/w hospice nurse further recommendations.
#Constipation
-bowel regimen , c/w Dulcolax supp. PRN
add night time Senna
# Nausea
c/w PRN Compazine
#Acute ischemic stroke of the left postcentral gyrus. Other scattered tiny acute cortical infarcts are noted, bilaterally.
Right sided weakness.
#CAD status post CABG x 2
#Paroxysmal atrial fibrillation
#Bradycardia
#Essential hypertension
Add PRN IV Hydralazine
#Hyperthyroidism
-Continue methimazole
#Chronic kidney disease 3B
#Anxiety
-Continue PRN IV Ativan.
#Hyperlipidemia
#Glaucoma
-Continue latanoprost
#Former smoker
#Chronic hyponatremia
Code status DNR/DNI
Total time spent to see the patient, examine the patient, review data and lab results, discuss treatment plan with patient, nursing staff around 55 minutes
Today's Communication
.
Interval History
-
Good response to IV Dilaudid and Ativan over night,
Night team: pt slept comfortably.
Physical Exam
-
Temp Pulse Resp BP Pulse Ox
97.9 F 98 22 148/72 92
10/05/23 08:48 10/05/23 08:48 10/05/23 08:48 10/05/23 08:48 10/05/23 08:48
--- NOTE | 2023-10-05 11:13 | HOSPNOTE ---
Patient was in distress and 2 doses of dilaudid given with some relief, patient was turned and repositioned and will continue to be medicated for shortness of breath and pain. The patient continues to be inpatient appropriate for pain management and
shortness of breath. The patient will be seen daily by the hospice nurse. No family was present at the time of my visit however, will be available if needed.
[2023-10-05] MEDS: TYLENOL/FEVERALL 650 MG RECTAL (16:55)
[2023-10-05] MEDS: DILAUDID 50 IV (19:19)
--- NOTE | 2023-10-05 19:27 | PTCARENOTE ---
Dilaudid gtt initiated per protocol. Plan of care discussed with family at bedside.
--- NOTE | 2023-10-05 21:40 | PTCARENOTE ---
House DIGITAL EDITOR asked to pronounce patient. family at bedside. Dilaudid gtt turned off.
--- NOTE | 2023-10-05 22:00 | W.PN.DEATH ---
Pronouncement of
-
Called to see patient to pronounce.
No spontaneous heart tones or respirations noted.
Patient not responsive to verbal stimuli.
Patient is pronounced .
Time of : 21:55
Date of : 10/05/23
Cause of : metastatic stage 4 lung cancer , hepatic and brain mets
Family Notified: Yes (at bedside)
--- NOTE | 2023-10-06 13:29 | W.DCSUMMARY ---
Discharge Summary
Discharge Data
Date of Admission: 10/04/23
Date of Discharge: 10/05/23
-
Pending Results: No
Hospital Course
78 years old female admitted to inpatient hospice care for metastatic lung cancer. Patient received comfort medications including hydromorphone for pain and shortness of breath. She was followed by hospice care nurse. Patient peacefully on
October 04 of surrounded by her family.
Discharge Plan
-
Patient Disposition:
Date/Time
Date/Time: 10/05/23 21:55
Discharge Date and Time
Discharge Date/Time: 10/05/23 21:55
Print Language: UPPER SORBIAN
== END 2023-10-05 21:55 | disposition expired | DRG 951 ==
LOC: 2 NORTH 13:32
PROVIDERS: ADMITTING PHYSICIAN Internal Medicine
DX: Z51.5 Encounter for palliative care (principal); C79.31 Secondary malignant neoplasm of brain; C78.7 Secondary malignant neoplasm of liver and intrahepatic bile duct; C34.90 Malignant neoplasm of unspecified part of unspecified bronchus or lung; E87.1 Hypo-osmolality and hyponatremia; I69.351 Hemiplegia and hemiparesis following cerebral infarction affecting right dominant side; K59.00 Constipation, unspecified; R00.1 Bradycardia, unspecified; R11.0 Nausea; I25.10 Atherosclerotic heart disease of native coronary artery without angina pectoris; I48.0 Paroxysmal atrial fibrillation; E05.90 Thyrotoxicosis, unspecified without thyrotoxic crisis or storm; I12.9 Hypertensive chronic kidney disease with stage 1 through stage 4 chronic kidney disease, or unspecified chronic kidney disease; N18.32 Chronic kidney disease, stage 3b; F41.9 Anxiety disorder, unspecified; E78.5 Hyperlipidemia, unspecified; Z66 Do not resuscitate; Z87.891 Personal history of nicotine dependence; Z95.1 Presence of aortocoronary bypass graft